=== PATIENT | female | born 1985 | race Caucasian/White ===

== ENCOUNTER 2016-10-08 12:34 | Inpatient (IN) | payer OTHER ==
[2016-10-08 13:18] VITALS: BMI 32.4
--- NOTE | 2016-10-08 14:32 | HP ---
CIWA Score - CIWA Score Nausea/Vomitin-Int. Nausea w/Dry Heave (AND DIARRHEA) Muscle Tremors: 4-Moderate,w/Arms Extend Anxiety: 4-Mod. Anxious/Guarded Agitation: 2 Paroxysmal Sweats: 1-Minimal Palms Moist Orientation: 0-Oriented Tacttile Disturbances: 3-Moderate Itch/Numb/Burn Auditory Disturbances: 0-None Visual Disturbances: 0-None Headache: 3-Moderate CIWA-Ar Total Score: 21 Admission ROS S - HPI Chief Complaint: DETOX TX FOR ALCOHOL DEPENDENCE Allergies/Adverse Reactions: Allergies Allergy/AdvReac Type Severity Reaction Status Date / Time No Known Allergies Allergy Verified 10/08/16 13:28 History of Present Illness: 30 Y/O FEMALE WITH A HX OF ALCOHOL DEPENDENCE SEEKING DETOX TX. FIRST TIME HERE. Exam Limitations: No Limitations - Ebola screening Have you traveled outside of the country in the last 21 days: No Have you had contact with anyone from an Ebola affected area: No Have you been sick,other than usual withdrawal symptoms: No Do you have a fever: No - Review of Systems Constitutional: Chills, Loss of Appetite, Night Sweats, Changes in sleep EENT: reports: Blurred Vision (WEARS GLASSES), Tearing, Nose Congestion, Dental Problems (CAVITIES IN THE PAST) Respiratory: reports: No Symptoms reported Cardiac: reports: Lightheadedness GI: reports: Diarrhea, Nausea, Poor Appetite, Poor Fluid Intake, Vomiting, Abdominal cramping : reports: Frequency Musculoskeletal: reports: Back Pain, Muscle Pain Integumentary: reports: No Symptoms Reported Neuro: reports: Headache, Tremors, Unsteady Gait, Dizziness Endocrine: reports: No Symptoms Reported Hematology: reports: No Symptoms Reported Psychiatric: reports: Orientated x3, Anxious, Depressed Other Systems: Reviewed and Negative Patient History - Patient Medical History Hx Anemia: No Hx Asthma: No Hx Chronic Obstructive Pulmonary Disease (COPD): No Hx Cardiac Disorders: No Hx Hypertension: No Hx Hypercholesterolemia: No HX Cerebrovascular Accident: No Hx Seizures: No Hx Diabetes: No Hx Gastrointestinal Disorders: Yes (Hx of acid reflux-PEPCID IN THE PAST) Hx Genitourinary Disorders: No Hx Sexually Transmitted Disorders: No (DENIES) Hx Renal Disease (ESRD): No (DENIES) Hx Thyroid Disease: No Hx Human Immunodeficiency Virus (HIV): No (NEGATIVE HX) Hx Hepatitis C: No Hx Depression: Yes (ON MED) Hx Suicide Attempt: Yes (tries to overdose at age 14 yrs;DENIES CURRENT IDEATIONS) Hx Bipolar Disorder: Yes Hx Schizophrenia: No - Patient Surgical History Past Surgical History: Yes Hx Section: No Hx Hysterectomy: No Other Surgical History: L toe ingrown toenail removed last week. Anesthesia Reaction: No - PPD History Previous Implant?: Yes Documented Results: Negative w/o proof Implanted On Prior [facility] Admission?: No PPD to be Administered?: Yes - Reproductive History Patient is a Female of Child Bearing Age (11 -55 yrs old): Yes Last Menstrual Period: 10/04/16 Patient : No - Smoking Cessation Smoking history: Former smoker Have you smoked in the past 12 months: No If you are a former smoker, when did you quit?: 2010 Hx Chewing Tobacco Use: No Initiated information on smoking cessation: No - Substance & Tx. History Hx Alcohol Use: Yes (BEER/LIQUOR) Hx Substance Use: No (DENIES) Substance Use Type: Alcohol Hx Substance Use Treatment: Yes (INPATIENT DETOX "IN [place]") - Substances Abused Alcohol Route: Oral Frequency: Daily Amount used: 8-10 SHOTS/ 6PK BEER Age of first use: 11 Date of Last Use: 10/08/16 Family Disease History - Family Disease History Family History: Denies Admission Physical Exam S - Vital Signs Vital Signs: Vital Signs - 24 hr 10/08/16 13:16 Temperature 98 F Pulse Rate 94 H Respiratory 20 Rate Blood Pressure 117/73 - Physical General Appearance: Yes: Moderate Distress, Irritable, Anxious HEENTM: Yes: EOMI, Normocephalic, MANDY, Pharynx Normal Respiratory: Yes: Chest Non-Tender, Lungs Clear, Normal Breath Sounds, No Respiratory Distress Neck: Yes: No masses,lesions,Nodules, Supple, Trachea in good position Breast: Yes: Breast Exam Deferred Cardiology: Yes: Regular Rhythm, Regular Rate, S1, S2 Abdominal: Yes: Normal Bowel Sounds, Non Tender, Soft, Protuberent Genitourinary: Yes: Other (N/C) Back: Yes: Within Normal Limits Musculoskeletal: Yes: full range of Motion, Gait Steady Extremities: Yes: Normal Range of Motion, Non-Tender, Tremors Neurological: Yes: iso coordinator II-XII NML intact, Fully Oriented, Alert, Motor Strength 5/5 Integumentary: Yes: Dry, Warm, Other (SMALL BRUISE ON LEFT ANKLE AND GREAT TOE.) Lymphatic: Yes: Within Normal Limits - Diagnostic (1) Alcohol dependence with uncomplicated withdrawal Current Visit: Yes Status: Acute (2) Ingrowing left great toenail Current Visit: Yes Status: Acute Comment: SX REMOVAL ONE WEEK AGO. SMALL BRUISE ON TOE. NO SWELLING. (3) GERD (gastroesophageal reflux disease) Current Visit: Yes Status: Chronic Qualifiers: Esophagitis presence: without esophagitis Qualified Code(s): K21.9 - Gastro-esophageal reflux disease without esophagitis Cleared for Admission [facility] - Detox or Rehab [facility] Level of Care: Medically Managed Detox Regimen/Protocol: Librium [facility] Breath Alcohol Content Breath Alcohol Content: 0 Urine Pregancy Test - Result Urine Test Results: Negative- NO Line Present Urine Drug Screen - Results Drug Screen Negative: Yes
[2016-10-08] MEDS ORDERED: MAGNESIUM CITRATE 300 ML BOTTLE PO PRN (14:47)
[2016-10-08] MEDS ORDERED: ACETAMINOPHEN 325 MG TABLET (FP) PO PRN (14:47)
[2016-10-08] MEDS ORDERED: P-EPHED 60MG/TRIPROLIDI 2.5MG TABLET PO PRN (14:47)
[2016-10-08] MEDS ORDERED: MAGNESIUM HYDROX 2400MG/30ML ORAL SUSPENSION 30 ML CUP PO PRN (14:47)
[2016-10-08] MEDS ORDERED: MENTHOL/PHENOL 1 EACH UD MM PRN (14:47)
[2016-10-08] MEDS ORDERED: chlordiazePOXIDE HCL 25 MG CAPSULE PO PRN (14:47)
[2016-10-08] MEDS ORDERED: guaiFENesin/D-METHORPHAN HB 10 ML UNIT-DOSE CUPS PO PRN (14:47)
[2016-10-08] MEDS ORDERED: chlordiazePOXIDE HCL 25 MG CAPSULE PO ONE (15:07)
[2016-10-08] MEDS: MAG HYDROX/AL HYDROX/SIMETH 30 ML UNIT-DOSE CUP PO PRN ×2 (17:21→22:25)
[2016-10-08] MEDS: chlordiazePOXIDE HCL 25 MG CAPSULE PO SCH ×2 (17:46→22:25)
[2016-10-08] MEDS ORDERED: TRIMETHOBENZAMIDE HCL 200MG/2ML INJ IM ONE (19:47)
[2016-10-08] MEDS: THIAMINE HCL 100 MG TABLET (FP) PO SCH (22:24)
[2016-10-08] MEDS: IBUPROFEN 400 MG TABLET (FP) PO PRN (22:25)
[2016-10-08] MEDS: diphenhydrAMINE HCL 50 MG CAPSULE PO PRN (22:26)
[2016-10-08 23:26] LABS: URINE APPEARANCE SLCLOUDY; URINE BILIRUBIN NEGATIVE (NEGATIVE); URINE BLOOD 2+ (NEGATIVE); URINE COLOR YELLOW; URINE GLUCOSE (UA) NEGATIVE (NEGATIVE); URINE KETONE NEGATIVE (NEGATIVE); URINE LEUK ESTERASE NEGATIVE (NEGATIVE); URINE NITRITE NEGATIVE (NEGATIVE); URINE PROTEIN NEGATIVE (NEGATIVE); URINE UROBILINOGEN NEGATIVE mg/dL (0.2-1.0)
[2016-10-09 00:56] LABS: CALCIUM OXALATE CRYSTALS MODERATE /hpf (NONE SEEN); URINE BACTERIA MODERATE /hpf (NONE SEEN); URINE MUCUS RARE; URINE RBC 2 /hpf (0-3); URINE WBC 1 /hpf (3-5)
[2016-10-09] MEDS: chlordiazePOXIDE HCL 25 MG CAPSULE PO SCH ×4 (05:26→22:18)
[2016-10-09] MEDS: LOPERAMIDE HCL 2 MG CAPSULE PO PRN (09:09)
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
[2016-10-09] MEDS ORDERED: LURASIDONE HCL 40 MG TABLET PO SCH (10:00)
[2016-10-09] MEDS ORDERED: LURASIDONE HCL 20 MG TABLET PO SCH (10:00)
[2016-10-09 10:08] LABS: MCH 27.5 pg (25.7-33.7); MCHC 32.7 g/dl (32.0-36.0); MEAN PLT VOLUME 8.6 fl (7.5-11.1); PLATELET COUNT 318 K/MM3 (134-434); RDW 14.1 % (11.6-15.6); WHITE BLOOD COUNT 8.4 K/mm3 (4.0-10.0)
[2016-10-09 10:19] LABS: ALBUMIN 4.3 g/dl (3.4-5.0); ALK PHOS 131 U/L (45-117); ANION GAP 11 (8-16); BILIRUBIN,TOTAL 0.6 mg/dL (0.2-1.0); CALCIUM 9.6 mg/dL (8.5-10.1); CO2 27 mmol/L (21-32); CREATININE 0.7 mg/dL (0.55-1.02); GLUCOSE,RANDOM 87 mg/dL (74-106); SGOT/AST 23 U/L (15-37); SGPT/ALT 30 U/L (12-78); TOT PROT 7.5 g/dl (6.4-8.2)
[2016-10-09] MEDS: PRENATAL VITAMINS W/ FOLIC ACID TABLET (FP) PO SCH (10:52)
[2016-10-09] MEDS: SERTRALINE HCL 50 MG TABLET (FP) PO SCH (10:52)
--- NOTE | 2016-10-09 11:06 | PN ---
S CIWA - CIWA Score Nausea/Vomitin-No Nausea/No Vomiting Muscle Tremors: 4-Moderate,w/Arms Extend Anxiety: 3 Agitation: 4-Moderately Restless Paroxysmal Sweats: 3 Orientation: 0-Oriented Tacttile Disturbances: 0-None Auditory Disturbances: 0-None Visual Disturbances: 0-None Headache: 1-Very Mild CIWA-Ar Total Score: 15 BHS Progress Note (SOAP) Subjective: diarrhea sweats shakes interrupted sleep agitation Objective: 10/09/16 11:06 Vital Signs Temperature 97.0 F L 10/09/16 10:53 Pulse Rate 85 10/09/16 10:53 Respiratory Rate 16 10/09/16 10:53 Blood Pressure 121/72 10/09/16 10:53 O2 Sat by Pulse Oximetry (%) Laboratory Tests 10/08/16 10/09/16 10/09/16 20:46 06:00 06:00 WBC 8.4 RBC 4.90 Hgb 13.5 Hct 41.2 MCV 84.0 MCH 27.5 MCHC 32.7 RDW 14.1 Plt Count 318 MPV 8.6 Sodium 139 Potassium 4.6 Chloride 101 Carbon Dioxide 27 Anion Gap 11 BUN 6 L Creatinine 0.7 Creat Clearance w eGFR > 60 Random Glucose 87 Calcium 9.6 Total Bilirubin 0.6 AST 23 ALT 30 Alkaline Phosphatase 131 H Total Protein 7.5 Albumin 4.3 Urine Color Yellow Urine Appearance Slcloudy Urine pH 6.0 Urine Protein Negative Urine Glucose (UA) Negative Urine Ketones Negative Urine Blood 2+ H Urine Nitrite Negative Urine Bilirubin Negative Urine Urobilinogen Negative Ur Leukocyte Esterase Negative Urine RBC 2 Urine WBC 1 Ur Epithelial Cells Moderate Calcium Oxalate Crystal Moderate Urine Bacteria Moderate Urine Mucus Rare awake/alert ambulating no acute distress Assessment: 10/09/16 11:06 withdrawal sx Plan: continue detox increase fluids immodium pnr
[2016-10-09] MEDS: ONDANSETRON 8 MG TABLET (FP) PO PRN (11:40)
--- NOTE | 2016-10-09 12:47 | EKG ---
Test Reason : Blood Pressure : / mmHG Vent. Rate : 078 BPM Atrial Rate : 078 BPM P-R Int : 142 ms QRS Dur : 090 ms QT Int : 390 ms P-R-T Axes : 073 042 053 degrees QTc Int : 444 ms NORMAL SINUS RHYTHM WITH SINUS ARRHYTHMIA POSSIBLE LEFT ATRIAL ENLARGEMENT BORDERLINE ECG NO PREVIOUS ECGS AVAILABLE Confirmed by NEHEMIAH PRATER MD ([id number]) on 10/09/2016 12:47:43 PM Referred By: Confirmed By:NEHEMIAH PRATER MD
[2016-10-09] MEDS: LURASIDONE HCL 20 MG TABLET PO SCH (22:18)
[2016-10-09] MEDS: LURASIDONE HCL 40 MG TABLET PO SCH (22:18)
[2016-10-09] MEDS: THIAMINE HCL 100 MG TABLET (FP) PO SCH (22:18)
[2016-10-09] MEDS: diphenhydrAMINE HCL 50 MG CAPSULE PO PRN (22:18)
[2016-10-10] MEDS: chlordiazePOXIDE HCL 25 MG CAPSULE PO SCH ×2 (05:23→12:14)
[2016-10-10] MEDS: PRENATAL VITAMINS W/ FOLIC ACID TABLET (FP) PO SCH (10:41)
[2016-10-10] MEDS: SERTRALINE HCL 50 MG TABLET (FP) PO SCH (10:41)
--- NOTE | 2016-10-10 11:57 | PN ---
[facility] CIWA - CIWA Score Nausea/Vomitin-No Nausea/No Vomiting Muscle Tremors: 4-Moderate,w/Arms Extend Anxiety: 3 Agitation: 3 Paroxysmal Sweats: 3 Orientation: 0-Oriented Tacttile Disturbances: 0-None Auditory Disturbances: 0-None Visual Disturbances: 0-None Headache: 0-None Present CIWA-Ar Total Score: 13 BHS Progress Note (SOAP) Subjective: sweats tired dizzy Objective: 10/10/16 11:54 Vital Signs Temperature 97.7 F 10/10/16 09:38 Pulse Rate 93 H 10/10/16 09:38 Respiratory Rate 18 10/10/16 09:38 Blood Pressure 100/52 10/10/16 09:38 O2 Sat by Pulse Oximetry (%) Laboratory Tests 10/08/16 10/09/16 10/09/16 20:46 06:00 06:00 WBC 8.4 RBC 4.90 Hgb 13.5 Hct 41.2 MCV 84.0 MCH 27.5 MCHC 32.7 RDW 14.1 Plt Count 318 MPV 8.6 Sodium 139 Potassium 4.6 Chloride 101 Carbon Dioxide 27 Anion Gap 11 BUN 6 L Creatinine 0.7 Creat Clearance w eGFR > 60 Random Glucose 87 Calcium 9.6 Total Bilirubin 0.6 AST 23 ALT 30 Alkaline Phosphatase 131 H Total Protein 7.5 Albumin 4.3 Urine Color Yellow Urine Appearance Slcloudy Urine pH 6.0 Ur Specific [place] 1.015 Urine Protein Negative Urine Glucose (UA) Negative Urine Ketones Negative Urine Blood 2+ H Urine Nitrite Negative Urine Bilirubin Negative Urine Urobilinogen Negative Ur Leukocyte Esterase Negative Urine RBC 2 Urine WBC 1 Ur Epithelial Cells Moderate Calcium Oxalate Crystal Moderate Urine Bacteria Moderate Urine Mucus Rare RPR Titer 10/09/16 06:00 WBC RBC Hgb Hct MCV MCH MCHC RDW Plt Count MPV Sodium Potassium Chloride Carbon Dioxide Anion Gap BUN Creatinine Creat Clearance w eGFR Random Glucose Calcium Total Bilirubin AST ALT Alkaline Phosphatase Total Protein Albumin Urine Color Urine Appearance Urine pH Ur Specific [place] Urine Protein Urine Glucose (UA) Urine Ketones Urine Blood Urine Nitrite Urine Bilirubin Urine Urobilinogen Ur Leukocyte Esterase Urine RBC Urine WBC Ur Epithelial Cells Calcium Oxalate Crystal Urine Bacteria Urine Mucus RPR Titer Nonreactive awake/alert ambulating no acute distress Assessment: 10/10/16 11:55 withdrawal sx Plan: continue detox increase fluids hold 10am librium
[2016-10-10] MEDS: chlordiazePOXIDE 5 MG CAPSULE PO SCH ×2 (17:31→22:28)
[2016-10-10] MEDS: THIAMINE HCL 100 MG TABLET (FP) PO SCH (22:28)
[2016-10-10] MEDS: diphenhydrAMINE HCL 50 MG CAPSULE PO PRN (22:28)
[2016-10-10] MEDS: LURASIDONE HCL 40 MG TABLET PO SCH (22:29)
[2016-10-10] MEDS: LURASIDONE HCL 20 MG TABLET PO SCH (22:29)
[2016-10-11] MEDS: chlordiazePOXIDE 5 MG CAPSULE PO SCH ×2 (06:01→12:48)
[2016-10-11] MEDS: SERTRALINE HCL 50 MG TABLET (FP) PO SCH (10:54)
[2016-10-11] MEDS: PRENATAL VITAMINS W/ FOLIC ACID TABLET (FP) PO SCH (10:54)
--- NOTE | 2016-10-11 12:44 | PN ---
BHS Progress Note (SOAP) Subjective: irritable tired Objective: 10/11/16 12:42 Vital Signs Temperature 96.1 F L 10/11/16 10:00 Pulse Rate 91 H 10/11/16 10:00 Respiratory Rate 18 10/11/16 10:00 Blood Pressure 113/62 10/11/16 10:00 O2 Sat by Pulse Oximetry (%) awake/alert ambulating no acute distress Assessment: 10/11/16 12:42 withdrawal sx Plan: continue detox increase fluids d/c in am
[2016-10-11] MEDS: chlordiazePOXIDE HCL 10 MG CAPSULE PO SCH ×2 (17:26→22:40)
[2016-10-11] MEDS: hydrOXYzine PAMOATE 50 MG CAPSULE (FP) PO PRN (21:44)
[2016-10-11] MEDS: THIAMINE HCL 100 MG TABLET (FP) PO SCH (22:40)
[2016-10-11] MEDS: LURASIDONE HCL 40 MG TABLET PO SCH (22:40)
[2016-10-11] MEDS: LURASIDONE HCL 20 MG TABLET PO SCH (22:40)
[2016-10-11] MEDS: ONDANSETRON 8 MG TABLET (FP) PO PRN (22:41)
[2016-10-11] MEDS: diphenhydrAMINE HCL 50 MG CAPSULE PO PRN (22:41)
--- NOTE | 2016-10-12 09:45 | DS ---
[facility] Detox Discharge Summary Admission Date: 10/08/16 Discharge Date: 10/12/16 - History Present History: Alcohol Dependence Pertinent Past History: GERD BIPOLAR DISORDER INGROWN TOENAIL LEFT GREAT TOE - Physical Exam Results Vital Signs: Vital Signs Temperature 97 F L 10/12/16 06:26 Pulse Rate 76 10/12/16 06:26 Respiratory Rate 18 10/12/16 06:26 Blood Pressure 96/61 10/12/16 06:26 O2 Sat by Pulse Oximetry (%) Pertinent Admission Physical Exam Findings: WITHDRAWAL SYMPTOM - Treatment Hospital Course: Detox Protocol Followed, Detoxed Safely, Responded well, Discharged Condition Good, Rehab Referral Accepted Patient has Accepted a Rehab Referral to: [facility] - Medication Discharge Medications: Ambulatory Orders Famotidine [Pepcid -] 20 mg PO BID 10/08/16 L. Acidophilus/Pectin, [place] [Acidophilus Probiotic Capsule] 1 each PO DAILY Lurasidone HCl [Latuda -] 60 mg PO DAILY 10/08/16 Multivitamin,Ther and Minerals [Vitamin and Minerals] 1 each PO DAILY 10/08/16 Sertraline HCl [Zoloft -] 100 mg PO DAILY 10/08/16 Lurasidone HCl [Latuda -] 20 mg PO HS #30 tablet 10/09/16 Lurasidone HCl [Latuda -] 40 mg PO HS #30 tablet 10/09/16 Sertraline HCl [Zoloft -] 100 mg PO DAILY #30 tablet 10/09/16 Sertraline HCl [Zoloft] 100 mg PO DAILY #30 tablet 10/09/16 - Diagnosis (1) Alcohol dependence with uncomplicated withdrawal Current Visit: Yes Status: Acute (2) Bipolar disorder Current Visit: Yes Status: Acute (3) Ingrowing left great toenail Current Visit: Yes Status: Acute (4) GERD (gastroesophageal reflux disease) Current Visit: Yes Status: Chronic Qualifiers: Esophagitis presence: without esophagitis Qualified Code(s): K21.9 - Gastro-esophageal reflux disease without esophagitis - AMA Did Patient Leave Against Medical Advice: No
[2016-10-12] MEDS: SERTRALINE HCL 50 MG TABLET (FP) PO SCH (11:00)
[2016-10-12] MEDS: PRENATAL VITAMINS W/ FOLIC ACID TABLET (FP) PO SCH (11:00)
[2016-10-12] MEDS: chlordiazePOXIDE HCL 10 MG CAPSULE PO SCH (11:03)
[2016-10-12] MEDS ORDERED: PT OWN MED DRAWER 7, Y5N ONE ×2 (19:55→21:48)
[2016-10-12] MEDS: THIAMINE HCL 100 MG TABLET (FP) PO SCH (21:49)
[2016-10-12] MEDS: diphenhydrAMINE HCL 50 MG CAPSULE PO PRN (22:55)
[2016-10-12] MEDS: LURASIDONE HCL 20 MG TABLET PO SCH (22:56)
[2016-10-12] MEDS: LURASIDONE HCL 40 MG TABLET PO SCH (23:08)
[2016-10-13] MEDS ORDERED: PT OWN MED DRAWER 7, Y5N ONE (01:13)
[2016-10-13] MEDS: SERTRALINE HCL 50 MG TABLET (FP) PO SCH (09:31)
[2016-10-13] MEDS: PRENATAL VITAMINS W/ FOLIC ACID TABLET (FP) PO SCH (09:31)
[2016-10-13] MEDS: LOPERAMIDE HCL 2 MG CAPSULE PO PRN (20:00)
[2016-10-13] MEDS: LURASIDONE HCL 40 MG TABLET PO SCH (21:42)
[2016-10-13] MEDS: LURASIDONE HCL 20 MG TABLET PO SCH (21:42)
[2016-10-13] MEDS: THIAMINE HCL 100 MG TABLET (FP) PO SCH (21:42)
[2016-10-14] MEDS: SERTRALINE HCL 50 MG TABLET (FP) PO SCH (09:59)
[2016-10-14] MEDS: PRENATAL VITAMINS W/ FOLIC ACID TABLET (FP) PO SCH (09:59)
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
[2016-10-14] MEDS: LACTOBACILLUS ACIDOPHILUS 1 EACH TAB (FP) PO SCH (15:35)
[2016-10-14] MEDS: PANTOPRAZOLE 40 MG TABLET (FP) PO SCH (15:36)
[2016-10-14] MEDS ORDERED: PT OWN MED DRAWER 7, Y5N ONE ×3 (15:38→22:08)
[2016-10-14] MEDS: BACITRACIN 0.9 GM PACKET TP SCH (21:34)
[2016-10-14] MEDS: THIAMINE HCL 100 MG TABLET (FP) PO SCH (21:35)
[2016-10-14] MEDS: diphenhydrAMINE HCL 50 MG CAPSULE PO PRN (22:35)
[2016-10-14] MEDS: LURASIDONE HCL 20 MG TABLET PO SCH (23:45)
[2016-10-15] MEDS ORDERED: PT OWN MED DRAWER 7, Y5N ONE ×3 (08:30→14:32)
[2016-10-15] MEDS: LACTOBACILLUS ACIDOPHILUS 1 EACH TAB (FP) PO SCH (10:02)
[2016-10-15] MEDS: PRENATAL VITAMINS W/ FOLIC ACID TABLET (FP) PO SCH (10:03)
[2016-10-15] MEDS: SERTRALINE HCL 50 MG TABLET (FP) PO SCH (10:03)
[2016-10-15] MEDS: PANTOPRAZOLE 40 MG TABLET (FP) PO SCH (10:03)
[2016-10-15] MEDS: BACITRACIN 0.9 GM PACKET TP SCH ×2 (10:04→22:20)
[2016-10-15] MEDS: hydrOXYzine PAMOATE 50 MG CAPSULE (FP) PO PRN (16:09)
[2016-10-15] MEDS: diphenhydrAMINE HCL 50 MG CAPSULE PO PRN (22:11)
[2016-10-15] MEDS: THIAMINE HCL 100 MG TABLET (FP) PO SCH (22:11)
[2016-10-15] MEDS: LURASIDONE HCL 20 MG TABLET PO SCH (22:25)
[2016-10-16] MEDS: SERTRALINE HCL 50 MG TABLET (FP) PO SCH (10:37)
[2016-10-16] MEDS: PRENATAL VITAMINS W/ FOLIC ACID TABLET (FP) PO SCH (10:37)
[2016-10-16] MEDS: PANTOPRAZOLE 40 MG TABLET (FP) PO SCH (10:38)
[2016-10-16] MEDS: LACTOBACILLUS ACIDOPHILUS 1 EACH TAB (FP) PO SCH (10:38)
[2016-10-16] MEDS: BACITRACIN 0.9 GM PACKET TP SCH ×2 (10:38→21:53)
[2016-10-16] MEDS ORDERED: PT OWN MED DRAWER 7, Y5N ONE ×2 (21:51→21:53)
[2016-10-16] MEDS: THIAMINE HCL 100 MG TABLET (FP) PO SCH (21:52)
[2016-10-16] MEDS: diphenhydrAMINE HCL 50 MG CAPSULE PO PRN (21:53)
[2016-10-16] MEDS: LURASIDONE HCL 20 MG TABLET PO SCH (21:53)
[2016-10-17] MEDS: LACTOBACILLUS ACIDOPHILUS 1 EACH TAB (FP) PO SCH (10:38)
[2016-10-17] MEDS: PRENATAL VITAMINS W/ FOLIC ACID TABLET (FP) PO SCH (10:38)
[2016-10-17] MEDS: SERTRALINE HCL 50 MG TABLET (FP) PO SCH (10:38)
[2016-10-17] MEDS: BACITRACIN 0.9 GM PACKET TP SCH ×2 (10:39→21:47)
[2016-10-17] MEDS: PANTOPRAZOLE 40 MG TABLET (FP) PO SCH (10:39)
[2016-10-17] MEDS ORDERED: PT OWN MED DRAWER 7, Y5N ONE ×3 (10:44→21:48)
[2016-10-17] MEDS: THIAMINE HCL 100 MG TABLET (FP) PO SCH (21:47)
[2016-10-17] MEDS: diphenhydrAMINE HCL 50 MG CAPSULE PO PRN (21:48)
[2016-10-17] MEDS: LURASIDONE HCL 20 MG TABLET PO SCH (21:49)
[2016-10-18] MEDS: IBUPROFEN 400 MG TABLET (FP) PO PRN (08:19)
--- NOTE | 2016-10-18 09:00 | PN ---
Psychiatric Progress Note Vital Signs: Vital Signs Period Temp Pulse Resp BP Sys/العراقي Pulse Ox Last 24 Hr 97.7 F 80 18-18 112/74 Date of Session: 10/18/16 Chief Complaint:: Shaun still depressed and Vistaril 50 mg makes me drowsy. HPI: Patient addressed nAlcohol,Opioid dependence comorbid with Bipolar disorder. ROS: Significant for GERD. Current Medications: Active Medications Generic Name Dose Route Start Last Admin Trade Name Freq PRN Reason Stop Dose Admin Acetaminophen 650 mg 10/08/16 14:47 Tylenol - PO Q4H PRN FEVER OR PAIN Al Hydroxide/Mg Hydroxide 30 ml 10/08/16 14:47 10/08/16 22:25 Mylanta Oral Suspension - PO 30 ml Q6H PRN Administration DYSPEPSIA Bacitracin 0.9 gm 10/14/16 22:00 10/17/16 21:47 Bacitracin - TP 0.9 gm BID ALEXIA Administration Diphenhydramine HCl 50 mg 10/08/16 14:47 10/17/16 21:48 Benadryl - PO 50 mg HSMR1 PRN Administration INSOMNIA Eucalyptus/Menthol/Phenol/Sorbitol 1 each 10/08/16 14:47 Cepastat Lozenge - MM Q4H PRN SORE THROAT Guaifenesin 10 ml 10/08/16 14:47 Robitussin Dm - PO Q6H PRN COUGH Hydroxyzine Pamoate 25 mg 10/18/16 08:55 Vistaril - PO Q4H PRN ANXIETY Ibuprofen 400 mg 10/08/16 14:47 10/18/16 08:19 Motrin - PO 400 mg Q6H PRN Administration SEVERE PAIN Lactobacillus Acidophilus 1 tab 10/14/16 15:15 10/17/16 10:38 Bacid - PO 1 tab DAILY ALEXIA Administration Loperamide HCl 4 mg 10/08/16 14:47 10/13/16 20:00 Imodium - PO 4 mg Q6H PRN Administration DIARRHEA Lurasidone HCl 60 mg 10/14/16 22:00 10/17/16 21:49 Latuda - PO 60 mg HS ALEXIA Administration Magnesium Citrate 300 ml 10/08/16 14:47 Citroma - PO Q48H PRN CONSTIPATION Magnesium Hydroxide 30 ml 10/08/16 14:47 Milk Of Magnesia - PO DAILY PRN CONSTIPATION Ondansetron HCl 8 mg 10/08/16 19:14 10/11/16 22:41 Zofran - PO 8 mg Q8H PRN Administration NAUSEA AND/OR VOMITING Pantoprazole Sodium 40 mg 10/14/16 15:15 10/17/16 10:39 Protonix - PO 40 mg DAILY ALEXIA Administration Multivit/Folic Acid/Iron 1 tab 10/09/16 10:00 10/17/16 10:38 Vitamins (Sjr) - PO 1 tab DAILY ALEXIA Administration Pseudoephedrine/Triprolidine 1 combo 10/08/16 14:47 Actifed - PO TID PRN NASAL CONGESTION Sertraline HCl 150 mg 10/18/16 10:00 Zoloft - PO DAILY ALEXIA Thiamine HCl 100 mg 10/08/16 22:00 10/17/16 21:47 Vitamin B1 - PO 100 mg HS ALEXIA Administration Current Side Effect: No Lab tests ordered: No Lab tests reviewed: Yes Provider note:: Patient was seen today in my office to address continuos depressed mood,anxiety,drowsiness from Vistaril.Properties of Zoloft has been discussed with patient including side effects,benefits and dose adjustment.Zoloft 100 mg po daily will be adjusted to 150 mg po daily,Vistaril 50 mg po q 4 hrs will be adjusted to 25 mg po q 4 hrs prn for anxiety.Continue Latuda 60 mg po daily. Supportive therapy provided as well as psychoeducation. Total face to face time:: 25 Mental Status Exam - Mental Status Exam Alert and Oriented to: Time, Place, Person Cognitive Function: Grossly Intact Patient Appearance: Unkempt Mood: Nervous, Anxious, Expansive, Irritable Affect: Mood Congruent, Labile Patient Behavior: Cooperative Speech Pattern: Clear Voice Loudness: Normal Thought Process: Goal Oriented Thought Disorder: Not Present Hallucinations: Denies Suicidal Ideation: Denies Homicidal Ideation: Denies Insight/Judgement: Fair Sleep: Fair Appetite: Fair Muscle strength/Tone: Normal Gait/Station: Normal Psychiatric Treatment Plan - Problem List (1) Bipolar disorder Current Visit: Yes (2) Ingrowing left great toenail Current Visit: Yes Comment: SX REMOVAL ONE WEEK AGO. SMALL BRUISE ON TOE. NO SWELLING. (3) GERD (gastroesophageal reflux disease) Current Visit: Yes Qualifiers: Esophagitis presence: without esophagitis Qualified Code(s): K21.9 - Gastro-esophageal reflux disease without esophagitis (4) Alcohol dependence Current Visit: Yes (5) Opioid dependence Current Visit: Yes
[2016-10-18] MEDS: SERTRALINE HCL 50 MG TABLET (FP) PO SCH (10:40)
[2016-10-18] MEDS: LACTOBACILLUS ACIDOPHILUS 1 EACH TAB (FP) PO SCH (10:40)
[2016-10-18] MEDS: PRENATAL VITAMINS W/ FOLIC ACID TABLET (FP) PO SCH (10:41)
[2016-10-18] MEDS: PANTOPRAZOLE 40 MG TABLET (FP) PO SCH (10:41)
[2016-10-18] MEDS: BACITRACIN 0.9 GM PACKET TP SCH ×2 (10:41→21:58)
[2016-10-18] MEDS ORDERED: ONDANSETRON *ODT* 4 MG TABLET SL PRN (12:25)
[2016-10-18] MEDS: hydrOXYzine PAMOATE 25 MG CAPSULE (FP) PO PRN (16:51)
[2016-10-18] MEDS: diphenhydrAMINE HCL 50 MG CAPSULE PO PRN (21:58)
[2016-10-18] MEDS: THIAMINE HCL 100 MG TABLET (FP) PO SCH (21:58)
[2016-10-18] MEDS: LURASIDONE HCL 20 MG TABLET PO SCH (22:00)
[2016-10-19] MEDS: SERTRALINE HCL 50 MG TABLET (FP) PO SCH (09:35)
[2016-10-19] MEDS: BACITRACIN 0.9 GM PACKET TP SCH ×2 (09:35→21:43)
[2016-10-19] MEDS: PRENATAL VITAMINS W/ FOLIC ACID TABLET (FP) PO SCH (09:36)
[2016-10-19] MEDS: PANTOPRAZOLE 40 MG TABLET (FP) PO SCH (09:36)
[2016-10-19] MEDS: LACTOBACILLUS ACIDOPHILUS 1 EACH TAB (FP) PO SCH (09:36)
[2016-10-19] MEDS ORDERED: PT OWN MED DRAWER 7, Y5N ONE ×3 (10:21→21:46)
[2016-10-19] MEDS: LURASIDONE HCL 20 MG TABLET PO SCH (21:43)
[2016-10-19] MEDS: THIAMINE HCL 100 MG TABLET (FP) PO SCH (21:43)
[2016-10-19] MEDS: diphenhydrAMINE HCL 50 MG CAPSULE PO PRN (21:44)
[2016-10-20] MEDS: PANTOPRAZOLE 40 MG TABLET (FP) PO SCH (09:51)
[2016-10-20] MEDS: PRENATAL VITAMINS W/ FOLIC ACID TABLET (FP) PO SCH (09:51)
[2016-10-20] MEDS: SERTRALINE HCL 50 MG TABLET (FP) PO SCH (09:51)
[2016-10-20] MEDS: BACITRACIN 0.9 GM PACKET TP SCH ×2 (09:51→21:56)
[2016-10-20] MEDS: LACTOBACILLUS ACIDOPHILUS 1 EACH TAB (FP) PO SCH (09:51)
[2016-10-20] MEDS ORDERED: PT OWN MED DRAWER 7, Y5N ONE ×3 (13:12→20:01)
[2016-10-20] MEDS: hydrOXYzine PAMOATE 25 MG CAPSULE (FP) PO PRN (19:21)
[2016-10-20] MEDS: THIAMINE HCL 100 MG TABLET (FP) PO SCH (21:50)
[2016-10-20] MEDS: LURASIDONE HCL 20 MG TABLET PO SCH (21:51)
[2016-10-20] MEDS: diphenhydrAMINE HCL 50 MG CAPSULE PO PRN (21:51)
[2016-10-21] MEDS ORDERED: PT OWN MED DRAWER 7, Y5N ONE ×2 (09:26→19:54)
[2016-10-21] MEDS: PANTOPRAZOLE 40 MG TABLET (FP) PO SCH (10:40)
[2016-10-21] MEDS: PRENATAL VITAMINS W/ FOLIC ACID TABLET (FP) PO SCH (10:41)
[2016-10-21] MEDS: LACTOBACILLUS ACIDOPHILUS 1 EACH TAB (FP) PO SCH (10:41)
[2016-10-21] MEDS: BACITRACIN 0.9 GM PACKET TP SCH ×2 (10:41→21:55)
[2016-10-21] MEDS: SERTRALINE HCL 50 MG TABLET (FP) PO SCH (10:41)
[2016-10-21] MEDS: hydrOXYzine PAMOATE 25 MG CAPSULE (FP) PO PRN ×2 (12:53→18:53)
[2016-10-21] MEDS: THIAMINE HCL 100 MG TABLET (FP) PO SCH (21:55)
[2016-10-21] MEDS: diphenhydrAMINE HCL 50 MG CAPSULE PO PRN (21:55)
[2016-10-21] MEDS: LURASIDONE HCL 20 MG TABLET PO SCH (21:56)
[2016-10-22] MEDS: PRENATAL VITAMINS W/ FOLIC ACID TABLET (FP) PO SCH (10:29)
[2016-10-22] MEDS: PANTOPRAZOLE 40 MG TABLET (FP) PO SCH (10:29)
[2016-10-22] MEDS: BACITRACIN 0.9 GM PACKET TP SCH ×2 (10:29→21:54)
[2016-10-22] MEDS: LACTOBACILLUS ACIDOPHILUS 1 EACH TAB (FP) PO SCH (10:29)
[2016-10-22] MEDS: SERTRALINE HCL 50 MG TABLET (FP) PO SCH (10:30)
[2016-10-22] MEDS ORDERED: PT OWN MED DRAWER 7, Y5N ONE ×2 (10:35→19:56)
[2016-10-22] MEDS: hydrOXYzine PAMOATE 25 MG CAPSULE (FP) PO PRN (10:53)
[2016-10-22] MEDS: THIAMINE HCL 100 MG TABLET (FP) PO SCH (21:54)
[2016-10-22] MEDS: diphenhydrAMINE HCL 50 MG CAPSULE PO PRN (21:54)
[2016-10-22] MEDS: LURASIDONE HCL 20 MG TABLET PO SCH (21:55)
[2016-10-23] MEDS: PRENATAL VITAMINS W/ FOLIC ACID TABLET (FP) PO SCH (10:19)
[2016-10-23] MEDS: PANTOPRAZOLE 40 MG TABLET (FP) PO SCH (10:20)
[2016-10-23] MEDS: SERTRALINE HCL 50 MG TABLET (FP) PO SCH (10:20)
[2016-10-23] MEDS: LACTOBACILLUS ACIDOPHILUS 1 EACH TAB (FP) PO SCH (10:20)
[2016-10-23] MEDS: BACITRACIN 0.9 GM PACKET TP SCH ×2 (10:20→21:58)
[2016-10-23] MEDS ORDERED: PT OWN MED DRAWER 7, Y5N ONE (14:19)
[2016-10-23] MEDS: LURASIDONE HCL 20 MG TABLET PO SCH (21:40)
[2016-10-23] MEDS: THIAMINE HCL 100 MG TABLET (FP) PO SCH (21:59)
[2016-10-23] MEDS: diphenhydrAMINE HCL 50 MG CAPSULE PO PRN (21:59)
[2016-10-24] MEDS: PANTOPRAZOLE 40 MG TABLET (FP) PO SCH (10:03)
[2016-10-24] MEDS: PRENATAL VITAMINS W/ FOLIC ACID TABLET (FP) PO SCH (10:03)
[2016-10-24] MEDS: SERTRALINE HCL 50 MG TABLET (FP) PO SCH (10:03)
[2016-10-24] MEDS: LACTOBACILLUS ACIDOPHILUS 1 EACH TAB (FP) PO SCH (10:03)
[2016-10-24] MEDS: BACITRACIN 0.9 GM PACKET TP SCH ×2 (10:04→21:54)
[2016-10-24] MEDS ORDERED: PT OWN MED DRAWER 7, Y5N ONE ×2 (13:21→20:09)
[2016-10-24] MEDS: LURASIDONE HCL 20 MG TABLET PO SCH (21:54)
[2016-10-24] MEDS: diphenhydrAMINE HCL 50 MG CAPSULE PO PRN (21:54)
[2016-10-24] MEDS: THIAMINE HCL 100 MG TABLET (FP) PO SCH (21:54)
[2016-10-25] MEDS: PRENATAL VITAMINS W/ FOLIC ACID TABLET (FP) PO SCH (09:45)
[2016-10-25] MEDS: LACTOBACILLUS ACIDOPHILUS 1 EACH TAB (FP) PO SCH (09:45)
[2016-10-25] MEDS: PANTOPRAZOLE 40 MG TABLET (FP) PO SCH (09:45)
[2016-10-25] MEDS: SERTRALINE HCL 50 MG TABLET (FP) PO SCH (09:45)
[2016-10-25] MEDS: hydrOXYzine PAMOATE 25 MG CAPSULE (FP) PO PRN (09:46)
[2016-10-25] MEDS: BACITRACIN 0.9 GM PACKET TP SCH ×2 (10:23→22:09)
[2016-10-25] MEDS ORDERED: PT OWN MED DRAWER 7, Y5N ONE (19:58)
[2016-10-25] MEDS: diphenhydrAMINE HCL 50 MG CAPSULE PO PRN (22:09)
[2016-10-25] MEDS: LURASIDONE HCL 20 MG TABLET PO SCH (22:09)
[2016-10-25] MEDS: THIAMINE HCL 100 MG TABLET (FP) PO SCH (22:09)
[2016-10-26] MEDS: PANTOPRAZOLE 40 MG TABLET (FP) PO SCH (09:30)
[2016-10-26] MEDS: PRENATAL VITAMINS W/ FOLIC ACID TABLET (FP) PO SCH (09:30)
[2016-10-26] MEDS: SERTRALINE HCL 50 MG TABLET (FP) PO SCH (09:30)
[2016-10-26] MEDS: BACITRACIN 0.9 GM PACKET TP SCH ×2 (09:30→21:57)
[2016-10-26] MEDS: LACTOBACILLUS ACIDOPHILUS 1 EACH TAB (FP) PO SCH (09:32)
[2016-10-26] MEDS ORDERED: PT OWN MED DRAWER 7, Y5N ONE (09:32)
[2016-10-26] MEDS: diphenhydrAMINE HCL 50 MG CAPSULE PO PRN (21:57)
[2016-10-26] MEDS: THIAMINE HCL 100 MG TABLET (FP) PO SCH (21:57)
[2016-10-26] MEDS: LURASIDONE HCL 20 MG TABLET PO SCH (21:57)
[2016-10-27] MEDS ORDERED: PT OWN MED DRAWER 7, Y5N ONE ×2 (09:09→20:21)
[2016-10-27] MEDS: LACTOBACILLUS ACIDOPHILUS 1 EACH TAB (FP) PO SCH (09:19)
[2016-10-27] MEDS: BACITRACIN 0.9 GM PACKET TP SCH ×2 (09:19→22:14)
[2016-10-27] MEDS: PRENATAL VITAMINS W/ FOLIC ACID TABLET (FP) PO SCH (09:19)
[2016-10-27] MEDS: PANTOPRAZOLE 40 MG TABLET (FP) PO SCH (09:19)
[2016-10-27] MEDS: SERTRALINE HCL 50 MG TABLET (FP) PO SCH (09:19)
[2016-10-27] MEDS: hydrOXYzine PAMOATE 25 MG CAPSULE (FP) PO PRN (09:21)
[2016-10-27] MEDS: diphenhydrAMINE HCL 50 MG CAPSULE PO PRN (22:14)
[2016-10-27] MEDS: LURASIDONE HCL 20 MG TABLET PO SCH (22:15)
[2016-10-27] MEDS: THIAMINE HCL 100 MG TABLET (FP) PO SCH (22:15)
[2016-10-28] MEDS: BACITRACIN 0.9 GM PACKET TP SCH ×2 (10:30→21:40)
[2016-10-28] MEDS: SERTRALINE HCL 50 MG TABLET (FP) PO SCH (10:30)
[2016-10-28] MEDS: PRENATAL VITAMINS W/ FOLIC ACID TABLET (FP) PO SCH (10:30)
[2016-10-28] MEDS: PANTOPRAZOLE 40 MG TABLET (FP) PO SCH (10:30)
[2016-10-28] MEDS: LACTOBACILLUS ACIDOPHILUS 1 EACH TAB (FP) PO SCH (10:30)
[2016-10-28] MEDS: THIAMINE HCL 100 MG TABLET (FP) PO SCH (21:39)
[2016-10-28] MEDS: LURASIDONE HCL 20 MG TABLET PO SCH (21:40)
[2016-10-28] MEDS: diphenhydrAMINE HCL 50 MG CAPSULE PO PRN (21:40)
[2016-10-29] MEDS ORDERED: PT OWN MED DRAWER 7, Y5N ONE ×2 (09:46→20:14)
[2016-10-29] MEDS: LACTOBACILLUS ACIDOPHILUS 1 EACH TAB (FP) PO SCH (10:21)
[2016-10-29] MEDS: PANTOPRAZOLE 40 MG TABLET (FP) PO SCH (10:21)
[2016-10-29] MEDS: BACITRACIN 0.9 GM PACKET TP SCH ×2 (10:21→21:07)
[2016-10-29] MEDS: SERTRALINE HCL 50 MG TABLET (FP) PO SCH (10:21)
[2016-10-29] MEDS: PRENATAL VITAMINS W/ FOLIC ACID TABLET (FP) PO SCH (10:21)
[2016-10-29] MEDS: LURASIDONE HCL 20 MG TABLET PO SCH (21:07)
[2016-10-29] MEDS: THIAMINE HCL 100 MG TABLET (FP) PO SCH (21:07)
[2016-10-29] MEDS: diphenhydrAMINE HCL 50 MG CAPSULE PO PRN (21:08)
[2016-10-30] MEDS ORDERED: PT OWN MED DRAWER 7, Y5N ONE (08:52)
[2016-10-30] MEDS: PRENATAL VITAMINS W/ FOLIC ACID TABLET (FP) PO SCH (10:09)
[2016-10-30] MEDS: LACTOBACILLUS ACIDOPHILUS 1 EACH TAB (FP) PO SCH (10:09)
[2016-10-30] MEDS: BACITRACIN 0.9 GM PACKET TP SCH ×2 (10:09→21:54)
[2016-10-30] MEDS: SERTRALINE HCL 50 MG TABLET (FP) PO SCH (10:10)
[2016-10-30] MEDS: PANTOPRAZOLE 40 MG TABLET (FP) PO SCH (10:10)
[2016-10-30] MEDS: LURASIDONE HCL 20 MG TABLET PO SCH (21:54)
[2016-10-30] MEDS: diphenhydrAMINE HCL 50 MG CAPSULE PO PRN (21:54)
[2016-10-30] MEDS: THIAMINE HCL 100 MG TABLET (FP) PO SCH (21:54)
[2016-10-31] MEDS: LACTOBACILLUS ACIDOPHILUS 1 EACH TAB (FP) PO SCH (10:19)
[2016-10-31] MEDS: SERTRALINE HCL 50 MG TABLET (FP) PO SCH (10:19)
[2016-10-31] MEDS: PRENATAL VITAMINS W/ FOLIC ACID TABLET (FP) PO SCH (10:19)
[2016-10-31] MEDS: BACITRACIN 0.9 GM PACKET TP SCH ×2 (10:19→21:43)
[2016-10-31] MEDS: PANTOPRAZOLE 40 MG TABLET (FP) PO SCH (10:19)
[2016-10-31] MEDS ORDERED: COLLOIDAL OATMEAL 1 BAR EACH TP PRN (15:02)
[2016-10-31] MEDS: diphenhydrAMINE HCL 50 MG CAPSULE PO PRN (21:43)
[2016-10-31] MEDS: THIAMINE HCL 100 MG TABLET (FP) PO SCH (21:43)
[2016-10-31] MEDS: LURASIDONE HCL 20 MG TABLET PO SCH (21:45)
[2016-11-01] MEDS ORDERED: PT OWN MED DRAWER 7, Y5N ONE ×2 (08:52→23:11)
[2016-11-01] MEDS: PRENATAL VITAMINS W/ FOLIC ACID TABLET (FP) PO SCH (10:23)
[2016-11-01] MEDS: SERTRALINE HCL 50 MG TABLET (FP) PO SCH (10:23)
[2016-11-01] MEDS: PANTOPRAZOLE 40 MG TABLET (FP) PO SCH (10:23)
[2016-11-01] MEDS: BACITRACIN 0.9 GM PACKET TP SCH ×2 (10:24→21:55)
[2016-11-01] MEDS: LACTOBACILLUS ACIDOPHILUS 1 EACH TAB (FP) PO SCH (10:24)
[2016-11-01] MEDS: hydrOXYzine PAMOATE 50 MG CAPSULE (FP) PO PRN ×2 (12:14→16:33)
[2016-11-01] MEDS: LURASIDONE HCL 20 MG TABLET PO SCH (21:54)
[2016-11-01] MEDS: THIAMINE HCL 100 MG TABLET (FP) PO SCH (21:54)
[2016-11-01] MEDS: diphenhydrAMINE HCL 50 MG CAPSULE PO PRN (21:55)
[2016-11-02] MEDS: PANTOPRAZOLE 40 MG TABLET (FP) PO SCH (09:51)
[2016-11-02] MEDS: LACTOBACILLUS ACIDOPHILUS 1 EACH TAB (FP) PO SCH (09:51)
[2016-11-02] MEDS: SERTRALINE HCL 50 MG TABLET (FP) PO SCH (09:51)
[2016-11-02] MEDS: PRENATAL VITAMINS W/ FOLIC ACID TABLET (FP) PO SCH (09:51)
[2016-11-02] MEDS: HYDROCORTISONE 1% TOPICAL CREAM 30 GM TUBE TP PRN (09:52)
[2016-11-02] MEDS: BACITRACIN 0.9 GM PACKET TP SCH ×2 (09:53→21:43)
[2016-11-02] MEDS ORDERED: PT OWN MED DRAWER 7, Y5N ONE ×3 (09:56→21:49)
[2016-11-02] MEDS: THIAMINE HCL 100 MG TABLET (FP) PO SCH (21:44)
[2016-11-02] MEDS: LURASIDONE HCL 20 MG TABLET PO SCH (21:44)
[2016-11-02] MEDS: diphenhydrAMINE HCL 50 MG CAPSULE PO PRN (21:45)
[2016-11-03] MEDS: SERTRALINE HCL 50 MG TABLET (FP) PO SCH (09:56)
[2016-11-03] MEDS: LACTOBACILLUS ACIDOPHILUS 1 EACH TAB (FP) PO SCH (09:56)
[2016-11-03] MEDS: PRENATAL VITAMINS W/ FOLIC ACID TABLET (FP) PO SCH (09:56)
[2016-11-03] MEDS: PANTOPRAZOLE 40 MG TABLET (FP) PO SCH (09:56)
[2016-11-03] MEDS: BACITRACIN 0.9 GM PACKET TP SCH ×2 (09:57→21:53)
[2016-11-03] MEDS ORDERED: PT OWN MED DRAWER 7, Y5N ONE ×2 (10:05→21:36)
[2016-11-03] MEDS: diphenhydrAMINE HCL 50 MG CAPSULE PO PRN (21:34)
[2016-11-03] MEDS: LURASIDONE HCL 20 MG TABLET PO SCH (21:34)
[2016-11-03] MEDS: THIAMINE HCL 100 MG TABLET (FP) PO SCH (21:34)
[2016-11-04] MEDS ORDERED: PT OWN MED DRAWER 7, Y5N ONE (08:00)
[2016-11-04] MEDS: SERTRALINE HCL 50 MG TABLET (FP) PO SCH (10:13)
[2016-11-04] MEDS: LACTOBACILLUS ACIDOPHILUS 1 EACH TAB (FP) PO SCH (10:13)
[2016-11-04] MEDS: PANTOPRAZOLE 40 MG TABLET (FP) PO SCH (10:13)
[2016-11-04] MEDS: PRENATAL VITAMINS W/ FOLIC ACID TABLET (FP) PO SCH (10:13)
[2016-11-04] MEDS: BACITRACIN 0.9 GM PACKET TP SCH ×2 (10:13→21:47)
[2016-11-04] MEDS: THIAMINE HCL 100 MG TABLET (FP) PO SCH (21:47)
[2016-11-04] MEDS: diphenhydrAMINE HCL 50 MG CAPSULE PO PRN (21:47)
[2016-11-04] MEDS: LURASIDONE HCL 20 MG TABLET PO SCH (21:47)
[2016-11-05] MEDS: SERTRALINE HCL 50 MG TABLET (FP) PO SCH (10:54)
[2016-11-05] MEDS: PRENATAL VITAMINS W/ FOLIC ACID TABLET (FP) PO SCH (10:54)
[2016-11-05] MEDS: PANTOPRAZOLE 40 MG TABLET (FP) PO SCH (10:54)
[2016-11-05] MEDS: LACTOBACILLUS ACIDOPHILUS 1 EACH TAB (FP) PO SCH (10:55)
[2016-11-05] MEDS: BACITRACIN 0.9 GM PACKET TP SCH ×2 (10:56→22:13)
[2016-11-05] MEDS ORDERED: PT OWN MED DRAWER 7, Y5N ONE ×3 (10:58→23:30)
[2016-11-05] MEDS: hydrOXYzine PAMOATE 50 MG CAPSULE (FP) PO PRN (12:36)
[2016-11-05] MEDS: LURASIDONE HCL 20 MG TABLET PO SCH (22:14)
[2016-11-05] MEDS: THIAMINE HCL 100 MG TABLET (FP) PO SCH (22:14)
[2016-11-05] MEDS: diphenhydrAMINE HCL 50 MG CAPSULE PO PRN (22:14)
[2016-11-06] MEDS: HYDROCORTISONE 1% TOPICAL CREAM 30 GM TUBE TP PRN (10:45)
[2016-11-06] MEDS: BACITRACIN 0.9 GM PACKET TP SCH ×2 (10:45→22:07)
[2016-11-06] MEDS: PANTOPRAZOLE 40 MG TABLET (FP) PO SCH (10:46)
[2016-11-06] MEDS: LACTOBACILLUS ACIDOPHILUS 1 EACH TAB (FP) PO SCH (10:46)
[2016-11-06] MEDS: SERTRALINE HCL 50 MG TABLET (FP) PO SCH (10:46)
[2016-11-06] MEDS: PRENATAL VITAMINS W/ FOLIC ACID TABLET (FP) PO SCH (10:46)
[2016-11-06] MEDS ORDERED: PT OWN MED DRAWER 7, Y5N ONE ×2 (13:18→19:59)
[2016-11-06] MEDS: THIAMINE HCL 100 MG TABLET (FP) PO SCH (22:06)
[2016-11-06] MEDS: LURASIDONE HCL 20 MG TABLET PO SCH (22:06)
[2016-11-06] MEDS: diphenhydrAMINE HCL 50 MG CAPSULE PO PRN (22:07)
[2016-11-07 06:52] VITALS: PULSE 93
[2016-11-07] MEDS: PRENATAL VITAMINS W/ FOLIC ACID TABLET (FP) PO SCH (10:20)
[2016-11-07] MEDS: LACTOBACILLUS ACIDOPHILUS 1 EACH TAB (FP) PO SCH (10:20)
[2016-11-07] MEDS: BACITRACIN 0.9 GM PACKET TP SCH ×2 (10:20→21:52)
[2016-11-07] MEDS: PANTOPRAZOLE 40 MG TABLET (FP) PO SCH (10:20)
[2016-11-07] MEDS: SERTRALINE HCL 50 MG TABLET (FP) PO SCH (10:20)
[2016-11-07] MEDS ORDERED: PT OWN MED DRAWER 7, Y5N ONE (10:26)
[2016-11-07] MEDS: hydrOXYzine PAMOATE 50 MG CAPSULE (FP) PO PRN (16:49)
[2016-11-07] MEDS: LURASIDONE HCL 20 MG TABLET PO SCH (21:52)
[2016-11-07] MEDS: THIAMINE HCL 100 MG TABLET (FP) PO SCH (21:52)
[2016-11-07] MEDS: diphenhydrAMINE HCL 50 MG CAPSULE PO PRN (21:52)
[2016-11-08 07:12] VITALS: BP 115/76; TEMP 97.6
[2016-11-08] MEDS: BACITRACIN 0.9 GM PACKET TP SCH (09:36)
[2016-11-08] MEDS: SERTRALINE HCL 50 MG TABLET (FP) PO SCH (09:36)
[2016-11-08] MEDS: PRENATAL VITAMINS W/ FOLIC ACID TABLET (FP) PO SCH (09:36)
[2016-11-08] MEDS: LACTOBACILLUS ACIDOPHILUS 1 EACH TAB (FP) PO SCH (09:36)
[2016-11-08] MEDS: PANTOPRAZOLE 40 MG TABLET (FP) PO SCH (09:36)
--- NOTE | 2016-11-08 09:39 | PN ---
Psychiatric Progress Note Vital Signs: Vital Signs Period Temp Pulse Resp BP Sys/العراقي Pulse Ox Last 24 Hr 97.6 F 93 18-18 115/76 Date of Session: 11/08/16 Chief Complaint:: Discharge visit HPI: Patient addressed Alcohol and Opioid dependence comorbid with Bipolar disorder. ROS: GERD. Current Medications: Active Medications Generic Name Dose Route Start Last Admin Trade Name Freq PRN Reason Stop Dose Admin Acetaminophen 650 mg 10/08/16 14:47 Tylenol - PO Q4H PRN FEVER OR PAIN Al Hydroxide/Mg Hydroxide 30 ml 10/08/16 14:47 10/08/16 22:25 Mylanta Oral Suspension - PO 30 ml Q6H PRN Administration DYSPEPSIA Bacitracin 0.9 gm 10/14/16 22:00 11/07/16 21:52 Bacitracin - TP Not Given BID ALEXIA Colloidal Oatmeal 1 applic 10/31/16 15:02 10/31/16 15:22 Aveeno Soap - TP 1 applic DAILY PRN Administration HYGEINE Diphenhydramine HCl 50 mg 10/08/16 14:47 11/07/16 21:52 Benadryl - PO 50 mg HSMR1 PRN Administration INSOMNIA Eucalyptus/Menthol/Phenol/Sorbitol 1 each 10/08/16 14:47 Cepastat Lozenge - MM Q4H PRN SORE THROAT Guaifenesin 10 ml 10/08/16 14:47 Robitussin Dm - PO Q6H PRN COUGH Hydrocortisone 1 applic 11/01/16 18:52 11/06/16 10:45 Hytone 1% Cream - TP 1 applic QID PRN Administration DRY SKIN Hydroxyzine Pamoate 50 mg 11/01/16 11:31 11/07/16 16:49 Vistaril - PO 50 mg Q4H PRN Administration ANXIETY Ibuprofen 400 mg 10/08/16 14:47 10/18/16 08:19 Motrin - PO 400 mg Q6H PRN Administration SEVERE PAIN Lactobacillus Acidophilus 1 tab 10/14/16 15:15 11/07/16 10:20 Bacid - PO 1 tab DAILY ALEXIA Administration Loperamide HCl 4 mg 10/08/16 14:47 10/13/16 20:00 Imodium - PO 4 mg Q6H PRN Administration DIARRHEA Lurasidone HCl 60 mg 10/14/16 22:00 11/07/16 21:52 Latuda - PO 60 mg HS ALEXIA Administration Magnesium Citrate 300 ml 10/08/16 14:47 Citroma - PO Q48H PRN CONSTIPATION Magnesium Hydroxide 30 ml 10/08/16 14:47 Milk Of Magnesia - PO DAILY PRN CONSTIPATION Ondansetron HCl 8 mg 10/18/16 12:25 11/01/16 09:00 Zofran Odt - SL 8 mg Q8H PRN Administration NAUSEA AND/OR VOMITING Pantoprazole Sodium 40 mg 10/14/16 15:15 11/07/16 10:20 Protonix - PO 40 mg DAILY ALEXIA Administration Multivit/Folic Acid/Iron 1 tab 10/09/16 10:00 11/07/16 10:20 Vitamins (Sjr) - PO 1 tab DAILY ALEXIA Administration Pseudoephedrine/Triprolidine 1 combo 10/08/16 14:47 Actifed - PO TID PRN NASAL CONGESTION Sertraline HCl 150 mg 10/18/16 10:00 11/07/16 10:20 Zoloft - PO 150 mg DAILY ALEXIA Administration Thiamine HCl 100 mg 10/08/16 22:00 11/07/16 21:52 Vitamin B1 - PO 100 mg HS ALEXIA Administration Current Side Effect: No Lab tests ordered: No Lab tests reviewed: Yes Provider note:: Patient completed this program today .She has met her treatment goals and will continue to address her issues on outpatient basis at [facility] program. Patient reports finding that Latuda 60 mg po daily,Zoloft 150 mg po daily help to cope with mood instability,anxiety, depression.Scripts for 30 days provided. Patient identifies areas of difficulties and ways,coping skills,support she can utilize to maintain recovery. Supportive therapy provided.Patient is stable for discharge today. Total face to face time:: 30 Mental Status Exam - Mental Status Exam Alert and Oriented to: Time, Place, Person Cognitive Function: Grossly Intact Patient Appearance: Well Groomed Mood: Hopeful, Euthymic Affect: Appropriate, Mood Congruent Patient Behavior: Cooperative Speech Pattern: Clear Voice Loudness: Normal Thought Process: Goal Oriented Thought Disorder: Not Present Hallucinations: Denies Suicidal Ideation: Denies Homicidal Ideation: Denies Insight/Judgement: Fair Sleep: Well Appetite: Good Muscle strength/Tone: Normal Gait/Station: Normal Psychiatric Treatment Plan - Problem List (2) Ingrowing left great toenail Comment: SX REMOVAL ONE WEEK AGO. SMALL BRUISE ON TOE. NO SWELLING. (3) GERD (gastroesophageal reflux disease) Qualifiers: Esophagitis presence: without esophagitis Qualified Code(s): K21.9 - Gastro-esophageal reflux disease without esophagitis
== END 2016-11-08 09:44 | disposition home or self-care (01) | DRG 895 ==
LOC: YASAS 12:34 → Y6N 14:42 → Y3E 10-12 12:42
PROVIDERS: ADMIT Internal Medicine; ATTEND Psychiatry & Neurology Psychiatry
PROC: HZ2ZZZZ Detoxification Services for Substance Abuse Treatment (ICD-10-PCS; 2016-10-12)
PROC: HZ42ZZZ Group Counseling for Substance Abuse Treatment, Cognitive-Behavioral (ICD-10-PCS; principal; 2016-11-08)
DX: F11.20 Opioid dependence, uncomplicated (principal); F10.230 Alcohol dependence with withdrawal, uncomplicated; F31.9 Bipolar disorder, unspecified; K21.9 Gastro-esophageal reflux disease without esophagitis; L60.0 Ingrowing nail
CPT/HCPCS: 36415; 80053; 81003; 81015; 85027; 86593; 93005; 93010

== ENCOUNTER 2017-03-18 13:53 | Inpatient (IN) | payer OTHER ==
[2017-03-18 17:36] VITALS: BMI 33.7
--- NOTE | 2017-03-18 18:08 | HP ---
COWS - Scale Resting Pulse: 1= [place] 81-100 Sweatin= Chills/Flushing Restless Observation: 3= Extraneous Movement Pupil Size: 0= Normal to Room Light Bone or Joint Aches: 2= Severe Diffuse Aches Runny Nose/ Eye Tearin= Runny Nose/Eyes GI Upset > 30mins: 3= Vomiting/Diarrhea Tremor Observation: 2= Slight Tremor Visible Yawning Observation: 1= 1-2x During Session Anxiety or Irritability: 2=Irritable/Anxious Goose Flesh Skin: 0=Smooth Skin COWS Score: 17 Admission ROS S - [facility] Chief Complaint: withdrawal sx Allergies/Adverse Reactions: Allergies Allergy/AdvReac Type Severity Reaction Status Date / Time latex Allergy Severe Verified 03/18/17 17:57 No Known Drug Allergies Allergy Verified 03/18/17 18:16 History of Present Illness: 31 years old female with long history of heroin dependence has gerd asthma and bipolar ii is admitted to detox Exam Limitations: No Limitations - Ebola screening Have you traveled outside of the country in the last 21 days: No (N) Have you had contact with anyone from an Ebola affected area: No Have you been sick,other than usual withdrawal symptoms: No Do you have a fever: No - Review of Systems Constitutional: Changes in sleep, Weight Stable EENT: reports: No Symptoms Reported Respiratory: reports: SOB with Exertion Cardiac: reports: No Symptoms Reported GI: reports: Diarrhea, Nausea, Poor Fluid Intake, Indigestion, Abdominal cramping : reports: No Symptoms Reported Musculoskeletal: reports: Back Pain, Joint Pain, Muscle Pain, Neck Pain Integumentary: reports: No Symptoms Reported Neuro: reports: Tremors Endocrine: reports: No Symptoms Reported Hematology: reports: No Symptoms Reported Psychiatric: reports: Judgement Intact, Orientated x3, Anxious, Depressed Other Systems: Reviewed and Negative Patient History - Patient Medical History Hx Anemia: No Hx Asthma: Yes Hx Chronic Obstructive Pulmonary Disease (COPD): No Hx Cancer: No Hx Cardiac Disorders: No Hx Congestive Heart Failure: No Hx Hypertension: No Hx Hypercholesterolemia: No Hx Pacemaker: No HX Cerebrovascular Accident: No Hx Seizures: No Hx Dementia: No Hx Diabetes: No Hx Gastrointestinal Disorders: Yes (Gerd) Hx Liver Disease: No Hx Genitourinary Disorders: No Hx Sexually Transmitted Disorders: No Hx Renal Disease (ESRD): No Hx Thyroid Disease: No Hx Human Immunodeficiency Virus (HIV): No (NEGATIVE HX) Hx Hepatitis C: No Hx Depression: No Hx Suicide Attempt: Yes (03/12/2017 overdose) Hx Bipolar Disorder: Yes Hx Schizophrenia: No - Patient Surgical History Past Surgical History: Yes Hx Neurologic Surgery: No Hx Cataract Extraction: No Hx Cardiac Surgery: No Hx Lung Surgery: No Hx Breast Surgery: No Hx Breast Biopsy: No Hx Abdominal Surgery: No Hx Appendectomy: No Hx Cholecystectomy: No Hx Genitourinary Surgery: No Hx Section: No Hx Orthopedic Surgery: No Hx Hysterectomy: No Other Surgical History: L toe ingrown toenail removed last week. 2015 Anesthesia Reaction: No - PPD History Previous Implant?: Yes Documented Results: Negative w/proof Implanted On Prior [facility] Admission?: Yes Date: 10/10/16 PPD to be Administered?: No - Reproductive History Patient is a Female of Child Bearing Age (11 -55 yrs old): Yes Last Menstrual Period: 01/16/17 Patient : No - Smoking Cessation Smoking history: Former smoker Have you smoked in the past 12 months: No If you are a former smoker, when did you quit?: 2010 Hx Chewing Tobacco Use: No Initiated information on smoking cessation: No - Substance & Tx. History Hx Alcohol Use: Yes Hx Substance Use: Yes Substance Use Type: Alcohol, Heroin, Opiates Hx Substance Use Treatment: Yes (11/2016 [facility] - Substances Abused Alcohol Route: Oral Frequency: 1-2 times per week Amount used: LIQUOR- 1 PINT, BEER- 2 SIX PACK Age of first use: 11 Date of Last Use: 03/17/17 Codeine Route: Oral Frequency: Daily Amount used: 400mg Age of first use: 11 Date of Last Use: 03/17/17 Family Disease History - Family Disease History Family Disease History: CA: Father (), Other: Father Admission Physical Exam BHS - Vital Signs Vital Signs: Vital Signs - 24 hr 03/18/17 17:33 Temperature 98.0 F Pulse Rate 93 H Respiratory 18 Rate Blood Pressure 165/92 - Physical General Appearance: Yes: Appropriately Dressed, Mild Distress, Obese, Tremorous , Irritable, Sweating, Anxious HEENTM: Yes: Hearing grossly Normal, Normal ENT Inspection, Normocephalic, Normal Voice Respiratory: Yes: Chest Non-Tender, No Respiratory Distress, No Accessory Muscle Use, Wheezing Neck: Yes: Supple, Trachea in good position Breast: Yes: Breasts Symetrical Cardiology: Yes: Regular Rhythm, S1, S2, Tachycardia Abdominal: Yes: Non Tender, Soft, Increased Bowel Sounds Genitourinary: Yes: Within Normal Limits Back: Yes: Normal Inspection Musculoskeletal: Yes: full range of Motion, Gait Steady, Back pain, Muscle Pain Extremities: Yes: Normal Inspection, Normal Range of Motion, Non-Tender, Tremors Neurological: Yes: Fully Oriented, Alert, Motor Strength 5/5, Normal Response, Depressed Affect Integumentary: Yes: Warm Lymphatic: Yes: Within Normal Limits - Diagnostic (1) Asthma Current Visit: Yes Status: Chronic Qualifiers: Asthma severity: mild Asthma persistence: intermittent Asthma complication type: with status asthmaticus Qualified Code(s): J45.22 - Mild intermittent asthma with status asthmaticus (2) Opioid dependence with withdrawal Current Visit: Yes Status: Acute (3) Bipolar II disorder Current Visit: Yes Status: Suspected (4) GERD (gastroesophageal reflux disease) Current Visit: Yes Status: Chronic Qualifiers: Esophagitis presence: without esophagitis Qualified Code(s): K21.9 - Gastro -esophageal reflux disease without esophagitis Cleared for Admission [facility] - Detox or Rehab [facility] Level of Care: Medically Managed Detox Regimen/Protocol: Methadone [facility] Breath Alcohol Content Breath Alcohol Content: 0 Urine Pregancy Test - Result Urine Test Results: Negative- NO Line Present Urine Drug Screen - Results Drug Screen Negative: No Urine Drug Screen Results: OPI-Opiates, OXY-Oxycodone
[2017-03-18] MEDS ORDERED: MAGNESIUM CITRATE 300 ML BOTTLE PO PRN (18:12)
[2017-03-18] MEDS ORDERED: MAG HYDROX/AL HYDROX/SIMETH 30 ML UNIT-DOSE CUP PO PRN (18:12)
[2017-03-18] MEDS ORDERED: LOPERAMIDE HCL 2 MG CAPSULE PO PRN (18:12)
[2017-03-18] MEDS ORDERED: ACETAMINOPHEN 325 MG TABLET (FP) PO PRN (18:12)
[2017-03-18] MEDS ORDERED: P-EPHED 60MG/TRIPROLIDI 2.5MG TABLET PO PRN (18:12)
[2017-03-18] MEDS ORDERED: METHADONE HCL 10 MG TABLET (FOR DETOX USE ONLY) PO ONE ×2 (18:30→23:00)
[2017-03-18] MEDS: diazePAM 5 MG TABLET PO PRN ×2 (18:58→22:20)
[2017-03-18] MEDS: ALBUTEROL SO4 18 GM HFA INHALER IH PRN (20:36)
[2017-03-18] MEDS: RANITIDINE HCL 150 MG TABLET (FP) PO SCH (22:20)
[2017-03-18] MEDS: NAPROXEN 500 MG TABLET (FP) PO PRN (22:20)
[2017-03-18] MEDS: THIAMINE HCL 100 MG TABLET (FP) PO SCH (22:20)
[2017-03-18 23:25] LABS: URINE APPEARANCE SLCLOUDY; URINE BILIRUBIN NEGATIVE (NEGATIVE); URINE BLOOD 2+ (NEGATIVE); URINE COLOR YELLOW; URINE GLUCOSE (UA) NEGATIVE (NEGATIVE); URINE KETONE NEGATIVE (NEGATIVE); URINE LEUK ESTERASE NEGATIVE (NEGATIVE); URINE NITRITE NEGATIVE (NEGATIVE); URINE PROTEIN NEGATIVE (NEGATIVE); URINE UROBILINOGEN NEGATIVE mg/dL (0.2-1.0)
[2017-03-18 23:37] LABS: AMORP URATES MODERATE /hpf (NONE SEEN)
[2017-03-19] MEDS: ALBUTEROL SO4 18 GM HFA INHALER IH PRN ×2 (05:09→14:15)
[2017-03-19] MEDS: ALBUTEROL SO4 0.083% IH SOL 2.5 MG/3 ML VIAL.NEB. NEB PRN ×2 (05:28→18:22)
[2017-03-19] MEDS: diazePAM 5 MG TABLET PO PRN ×3 (06:00→22:23)
--- NOTE | 2017-03-19 07:47 | CONSULT ---
[facility] Psychiatric Consult - Data Date of interview: 03/19/17 Admission source: [facility] Identifying data: This is 31 years old female with history of psychiatric hospitalization , history of Bip[olar Disroder, intoxicayed with: Opioids and Alcohol Substance Abuse History: - Smoking Cessation. Smoking history: Former smoker. Have you smoked in the past 12 months: No. If you are a former smoker, when did you quit?: 2010. Hx Chewing Tobacco Use: No. Initiated information on smoking cessation: No. - Substance & Tx. History. Hx Alcohol Use: Yes. Hx Substance Use: Yes. Substance Use Type: Alcohol, Heroin, Opiates. Hx Substance Use Treatment: Yes (11/2016 [facility]). - Substances Abused. Alcohol. Route: Oral. Frequency: 1-2 times per week. Amount used: LIQUOR- 1 PINT, BEER- 2 SIX PACK. Age of first use: 11. Date of Last Use: 03/17/17. Codeine. Route: Oral. Frequency: Daily. Amount used: 400mg. Age of first use : 11. Date of Last Use: 03/17/17 Medical History: Asthma, GERD Psychiatric History: Patient reports [facility] psychiatric admission on 2015 at [facility] for safety, reports to carry Bipolar Disorder, reports taking prior to admission: Latuda 60MG PO QHS. Zoloft 150mg poqd Physical/Sexual Abuse/Trauma History: Denies Additional Comment: Latuda 60mg po qhs. Zoloft 150mg poqd Mental Status Exam - Mental Status Exam Alert and Oriented to: Person Cognitive Function: Fair Patient Appearance: Unkempt Mood: Sad Affect: Flat Patient Behavior: Cooperative Speech Pattern: Appropriate Voice Loudness: Normal Thought Process: Circumstantial Thought Disorder: Being Controlled Hallucinations: Denies Suicidal Ideation: Denies Homicidal Ideation: Denies Insight/Judgement: Fair Sleep: Difficulty falling asleep Appetite: Fair Muscle strength/Tone: Mild Hypotonicity Gait/Station: Shuffling Additional Comments: Latuda 60mg po qhs. Zoloft 150mg poqd Psychiatric Findings - Problem List ([place] 1, 2,3) (1) Opioid dependence with withdrawal Current Visit: Yes Status: Acute (2) Bipolar II disorder Current Visit: Yes Status: Suspected (3) Alcohol dependence with uncomplicated withdrawal Current Visit: No Status: Acute (4) Alcohol dependence Current Visit: No Status: Chronic (5) Bipolar disorder Current Visit: No Status: Chronic (6) Opioid dependence Current Visit: No Status: Chronic - Initial Treatment Plan Initial Treatment Plan: Latuda 60mg po qhs. Zoloft 150mg poqd
--- NOTE | 2017-03-19 09:39 | EKG ---
Test Reason : Blood Pressure : / mmHG Vent. Rate : 092 BPM Atrial Rate : 092 BPM P-R Int : 130 ms QRS Dur : 092 ms QT Int : 338 ms P-R-T Axes : 065 038 052 degrees QTc Int : 417 ms NORMAL SINUS RHYTHM RIGHT ATRIAL ENLARGEMENT BORDERLINE ECG WHEN COMPARED WITH ECG OF 08-OCT-2016 16:24, NO SIGNIFICANT CHANGE WAS FOUND Confirmed by JOSI BATES, NEHEMIAH ([id number]) on 03/19/2017 9:38:49 AM Referred By: Confirmed By:NEHEMIAH PRATER MD
[2017-03-19] MEDS ORDERED: METHADONE HCL 10 MG TABLET (FOR DETOX USE ONLY) PO ONE (10:00)
[2017-03-19 10:16] LABS: HEMATOCRIT 42.5 % (32.4-45.2); HEMOGLOBIN 13.6 GM/dL (10.7-15.3); MCH 27.9 pg (25.7-33.7); MEAN CELL VOLUME 87.1 fl (80-96); MEAN PLT VOLUME 7.7 fl (7.5-11.1); PLATELET COUNT 346 K/MM3 (134-434); RBC 4.88 M/mm3 (3.60-5.2); RDW 15.4 % (11.6-15.6); WHITE BLOOD COUNT 13.6 K/mm3 (4.0-10.0)
[2017-03-19] MEDS: SERTRALINE HCL 50 MG TABLET (FP) PO SCH (10:20)
[2017-03-19] MEDS: PRENATAL VITAMINS W/ FOLIC ACID TABLET (FP) PO SCH (10:20)
[2017-03-19] MEDS: RANITIDINE HCL 150 MG TABLET (FP) PO SCH ×2 (10:20→22:23)
[2017-03-19 10:24] LABS: CHLORIDE 103 mmol/L (98-107); POTASSIUM 3.4 mmol/L (3.5-5.1); SODIUM 138 mmol/L (136-145)
[2017-03-19 10:33] LABS: ALBUMIN 3.9 g/dl (3.4-5.0); ALK PHOS 106 U/L (45-117); ANION GAP 12 (8-16); BILIRUBIN,TOTAL 0.5 mg/dL (0.2-1.0); BLOOD UREA NITROGEN 11 mg/dL (7-18); CALCIUM 9.1 mg/dL (8.5-10.1); CO2 23 mmol/L (21-32); CREATININE 0.9 mg/dL (0.55-1.02); GLUCOSE,RANDOM 147 mg/dL (74-106); SGOT/AST 13 U/L (15-37); SGPT/ALT 29 U/L (12-78)
--- NOTE | 2017-03-19 10:45 | PN ---
BHS COWS - Scale Resting Pulse: 1= [place] 81-100 Sweatin=Flushed/Facial Moisture Restless Observation: 3= Extraneous Movement Pupil Size: 1= Pupils >than Normal Bone or Joint Aches: 1= Mild Discomfort Runny Nose/ Eye Tearin= Nasal Congestion GI Upset > 30mins: 0= None Tremor Observation of Outstretched Hands: 2= Slight Tremor Visible Yawning Observation: 0= None Anxiety or Irritability: 2=Irritable/Anxious Goose Flesh Skin: 0=Smooth Skin COWS Score: 13 BHS Progress Note (SOAP) Subjective: Anxiety sleeplessness diarrhea requesting to read mandaeism material Objective: 03/19/17 10:42 anxious no acute distress Last Vital Signs Temp Pulse Resp BP Pulse Ox 97 F L 100 H 20 127/87 03/19/17 06:33 03/19/17 06:33 03/19/17 06:33 03/19/17 06:33 Laboratory Last Values WBC 13.6 K/mm3 (4.0-10.0) H D 03/19/17 06:00 RBC 4.88 M/mm3 (3.60-5.2) 03/19/17 06:00 Hgb 13.6 GM/dL (10.7-15.3) 03/19/17 06:00 Hct 42.5 % (32.4-45.2) 03/19/17 06:00 MCV 87.1 fl (80-96) 03/19/17 06:00 MCH 27.9 pg (25.7-33.7) 03/19/17 06:00 MCHC 32.0 g/dl (32.0-36.0) 03/19/17 06:00 RDW 15.4 % (11.6-15.6) 03/19/17 06:00 Plt Count 346 K/MM3 (134-434) 03/19/17 06:00 MPV 7.7 fl (7.5-11.1) D 03/19/17 06:00 Sodium 138 mmol/L (136-145) 03/19/17 06:00 Potassium 3.4 mmol/L (3.5-5.1) L D 03/19/17 06:00 Chloride 103 mmol/L (98-107) 03/19/17 06:00 Carbon Dioxide 23 mmol/L (21-32) 03/19/17 06:00 Anion Gap 12 (8-16) 03/19/17 06:00 BUN 11 mg/dL (7-18) D 03/19/17 06:00 Creatinine 0.9 mg/dL (0.55-1.02) D 03/19/17 06:00 Creat Clearance w eGFR > 60 (>60) 03/19/17 06:00 Random Glucose 147 mg/dL (74-106) H D 03/19/17 06:00 Calcium 9.1 mg/dL (8.5-10.1) 03/19/17 06:00 Total Bilirubin 0.5 mg/dL (0.2-1.0) 03/19/17 06:00 AST 13 U/L (15-37) L D 03/19/17 06:00 ALT 29 U/L (12-78) 03/19/17 06:00 Alkaline Phosphatase 106 U/L (45-117) 03/19/17 06:00 Total Protein 7.0 g/dl (6.4-8.2) 03/19/17 06:00 Albumin 3.9 g/dl (3.4-5.0) 03/19/17 06:00 Urine Color Yellow 03/18/17 21:20 Urine Appearance Slcloudy 03/18/17 21:20 Urine pH 6.0 (5.0-8.0) 03/18/17 21:20 Ur Specific [place] 1.017 (1.001-1.035) 03/18/17 21:20 Urine Protein Negative (NEGATIVE) 03/18/17 21:20 Urine Glucose (UA) Negative (NEGATIVE) 03/18/17 21:20 Urine Ketones Negative (NEGATIVE) 03/18/17 21:20 Urine Blood 2+ (NEGATIVE) H 03/18/17 21:20 Urine Nitrite Negative (NEGATIVE) 03/18/17 21:20 Urine Bilirubin Negative (NEGATIVE) 03/18/17 21:20 Urine Urobilinogen Negative mg/dL (0.2-1.0) 03/18/17 21:20 Ur Leukocyte Esterase Negative (NEGATIVE) 03/18/17 21:20 Urine WBC (Auto) None /hpf (3-5) 03/18/17 21:20 Urine RBC (Auto) 4 /hpf (0-3) 03/18/17 21:20 Amorphous Urates Moderate /hpf (NONE SEEN) 03/18/17 21:20 labs noted, low potassium Assessment: 03/19/17 10:44 withdrawal sx Plan: continue detox potassium supplement
[2017-03-19] MEDS ORDERED: POTASSIUM CHLORIDE TABS 20 MEQ TABLET.ER (FP) PO ONE (13:40)
[2017-03-19] MEDS: LURASIDONE HCL 20 MG TABLET PO SCH (22:23)
[2017-03-19] MEDS: THIAMINE HCL 100 MG TABLET (FP) PO SCH (22:23)
[2017-03-19] MEDS: NAPROXEN 500 MG TABLET (FP) PO PRN (22:23)
[2017-03-20] MEDS: guaiFENesin/D-METHORPHAN HB 10 ML UNIT-DOSE CUPS PO PRN ×2 (05:51→19:12)
[2017-03-20] MEDS: diazePAM 5 MG TABLET PO PRN ×4 (05:53→22:12)
[2017-03-20] MEDS: MENTHOL/PHENOL 1 EACH UD MM PRN ×2 (05:53→11:45)
[2017-03-20] MEDS ORDERED: METHADONE HCL 5 MG TABLET (FOR DETOX USE ONLY) PO ONE (10:00)
[2017-03-20] MEDS: PRENATAL VITAMINS W/ FOLIC ACID TABLET (FP) PO SCH (11:04)
[2017-03-20] MEDS: SERTRALINE HCL 50 MG TABLET (FP) PO SCH (11:04)
[2017-03-20] MEDS: POTASSIUM CHLORIDE TABS 20 MEQ TABLET.ER (FP) PO SCH (11:04)
[2017-03-20] MEDS: RANITIDINE HCL 150 MG TABLET (FP) PO SCH ×2 (11:05→22:12)
[2017-03-20] MEDS: ALBUTEROL SO4 0.083% IH SOL 2.5 MG/3 ML VIAL.NEB. NEB PRN ×2 (11:20→19:48)
[2017-03-20] MEDS: ALBUTEROL SO4 18 GM HFA INHALER IH PRN ×2 (12:39→16:25)
--- NOTE | 2017-03-20 12:39 | PN ---
BHS Progress Note Note: pt bump her left big toe when she opened her door, no cut no bruising no swelling noted. encourage to put ice and ask for motrin if pain persist. pt in agreement.
[2017-03-20] MEDS: MAGNESIUM HYDROX 2400MG/30ML ORAL SUSPENSION 30 ML CUP PO PRN (20:51)
[2017-03-20] MEDS: THIAMINE HCL 100 MG TABLET (FP) PO SCH (22:12)
[2017-03-20] MEDS: LURASIDONE HCL 20 MG TABLET PO SCH (22:13)
[2017-03-21] MEDS: ALBUTEROL SO4 0.083% IH SOL 2.5 MG/3 ML VIAL.NEB. NEB PRN (02:30)
[2017-03-21] MEDS: diazePAM 5 MG TABLET PO PRN ×2 (06:07→11:00)
[2017-03-21] MEDS: ALBUTEROL SO4 18 GM HFA INHALER IH PRN (06:08)
[2017-03-21] MEDS: MENTHOL/PHENOL 1 EACH UD MM PRN (06:10)
[2017-03-21] MEDS: guaiFENesin/D-METHORPHAN HB 10 ML UNIT-DOSE CUPS PO PRN (08:45)
[2017-03-21] MEDS ORDERED: METHADONE HCL 5 MG TABLET (FOR DETOX USE ONLY) PO ONE (10:00)
[2017-03-21] MEDS: PRENATAL VITAMINS W/ FOLIC ACID TABLET (FP) PO SCH (11:00)
[2017-03-21] MEDS: POTASSIUM CHLORIDE TABS 20 MEQ TABLET.ER (FP) PO SCH (11:00)
[2017-03-21] MEDS: SERTRALINE HCL 50 MG TABLET (FP) PO SCH (11:00)
[2017-03-21] MEDS: RANITIDINE HCL 150 MG TABLET (FP) PO SCH ×2 (11:00→22:21)
--- NOTE | 2017-03-21 12:59 | PN ---
BHS COWS - Scale Resting Pulse: 1= [place] 81-100 Sweatin=Flushed/Facial Moisture Restless Observation: 1= Difficult to Sit Still Pupil Size: 0= Normal to Room Light Bone or Joint Aches: 1= Mild Discomfort Runny Nose/ Eye Tearin= Runny Nose/Eyes GI Upset > 30mins: 0= None Tremor Observation of Outstretched Hands: 2= Slight Tremor Visible Yawning Observation: 2= >3x During Session Anxiety or Irritability: 2=Irritable/Anxious Goose Flesh Skin: 0=Smooth Skin COWS Score: 13 BHS Progress Note (SOAP) Subjective: cough sweats irritable shakes interrupted sleep Objective: 03/20/17 12:57 Vital Signs Temperature 98.1 F 03/21/17 10:42 Pulse Rate 100 H 03/21/17 10:42 Respiratory Rate 16 03/21/17 10:42 Blood Pressure 116/64 03/21/17 10:42 O2 Sat by Pulse Oximetry (%) Laboratory Tests 03/18/17 03/19/17 03/19/17 21:20 06:00 06:00 WBC 13.6 H D RBC 4.88 Hgb 13.6 Hct 42.5 MCV 87.1 MCH 27.9 MCHC 32.0 RDW 15.4 Plt Count 346 MPV 7.7 D Sodium 138 Potassium 3.4 L D Chloride 103 Carbon Dioxide 23 Anion Gap 12 BUN 11 D Creatinine 0.9 D Creat Clearance w eGFR > 60 Random Glucose 147 H D Calcium 9.1 Total Bilirubin 0.5 AST 13 L D ALT 29 Alkaline Phosphatase 106 Total Protein 7.0 Albumin 3.9 Urine Color Yellow Urine Appearance Slcloudy Urine pH 6.0 Ur Specific [place] 1.017 Urine Protein Negative Urine Glucose (UA) Negative Urine Ketones Negative Urine Blood 2+ H Urine Nitrite Negative Urine Bilirubin Negative Urine Urobilinogen Negative Ur Leukocyte Esterase Negative Urine WBC (Auto) None Urine RBC (Auto) 4 Amorphous Urates Moderate RPR Titer 03/19/17 06:00 WBC RBC Hgb Hct MCV MCH MCHC RDW Plt Count MPV Sodium Potassium Chloride Carbon Dioxide Anion Gap BUN Creatinine Creat Clearance w eGFR Random Glucose Calcium Total Bilirubin AST ALT Alkaline Phosphatase Total Protein Albumin Urine Color Urine Appearance Urine pH Ur Specific [place] Urine Protein Urine Glucose (UA) Urine Ketones Urine Blood Urine Nitrite Urine Bilirubin Urine Urobilinogen Ur Leukocyte Esterase Urine WBC (Auto) Urine RBC (Auto) Amorphous Urates RPR Titer Nonreactive aaox3 ambulating no acute distress Assessment: 03/20/17 12:58 withdrawal sx Plan: increase fluids continue detox
--- NOTE | 2017-03-21 13:04 | PN ---
BHS Progress Note (SOAP) Subjective: cough sweats agitation Objective: 03/21/17 13:03 Vital Signs Temperature 98.1 F 03/21/17 10:42 Pulse Rate 100 H 03/21/17 10:42 Respiratory Rate 16 03/21/17 10:42 Blood Pressure 116/64 03/21/17 10:42 O2 Sat by Pulse Oximetry (%) aaox3 ambulating no acute distress Assessment: 03/21/17 13:04 withdrawal sx Plan: continue detox increase fluids chest x-ray ordered
[2017-03-21] MEDS ORDERED: AZITHROMYCIN 250 MG TABLET PO ONE (14:16)
--- NOTE | 2017-03-21 14:47 | PN ---
BHS Progress Note Note: chest x-ray reviewed; no pna reported. pt made aware
[2017-03-21] MEDS: THIAMINE HCL 100 MG TABLET (FP) PO SCH (22:21)
[2017-03-21] MEDS: NAPROXEN 500 MG TABLET (FP) PO PRN (22:21)
[2017-03-22] MEDS: LURASIDONE HCL 20 MG TABLET PO SCH ×2 (01:08→23:07)
[2017-03-22] MEDS ORDERED: METHADONE HCL 10 MG TABLET (FOR DETOX USE ONLY) PO ONE (10:00)
[2017-03-22] MEDS: SERTRALINE HCL 50 MG TABLET (FP) PO SCH (10:58)
[2017-03-22] MEDS: PRENATAL VITAMINS W/ FOLIC ACID TABLET (FP) PO SCH (10:59)
[2017-03-22] MEDS: AZITHROMYCIN 250 MG TABLET PO SCH (10:59)
[2017-03-22] MEDS: RANITIDINE HCL 150 MG TABLET (FP) PO SCH ×2 (10:59→23:10)
[2017-03-22] MEDS: ALBUTEROL SO4 0.083% IH SOL 2.5 MG/3 ML VIAL.NEB. NEB PRN ×2 (10:59→20:25)
--- NOTE | 2017-03-22 14:39 | PN ---
BHS Progress Note (SOAP) Subjective: sweats cough "needs asthma tx" Objective: 03/22/17 14:35 Vital Signs Temperature 98.2 F 03/22/17 13:50 Pulse Rate 104 H 03/22/17 13:50 Respiratory Rate 18 03/22/17 13:50 Blood Pressure 111/72 03/22/17 13:50 O2 Sat by Pulse Oximetry (%) Assessment: 03/22/17 14:36 withdrawal sx lungs clear, + breath sounds, no resp distress noted Plan: continue detox d/c tomorrow
[2017-03-22] MEDS: MAGNESIUM HYDROX 2400MG/30ML ORAL SUSPENSION 30 ML CUP PO PRN (18:19)
[2017-03-22] MEDS: hydrOXYzine PAMOATE 50 MG CAPSULE (FP) PO PRN (18:19)
[2017-03-22] MEDS: THIAMINE HCL 100 MG TABLET (FP) PO SCH (23:05)
[2017-03-23] MEDS ORDERED: METHADONE HCL 5 MG TABLET (FOR DETOX USE ONLY) PO ONE (06:00)
[2017-03-23] MEDS: hydrOXYzine PAMOATE 50 MG CAPSULE (FP) PO PRN (07:54)
--- NOTE | 2017-03-23 09:32 | DS ---
[facility] Detox Discharge Summary Admission Date: 03/18/17 Discharge Date: 03/23/17 - History Present History: Opioid Dependence - Physical Exam Results Vital Signs: Vital Signs Temperature 98.1 F 03/23/17 06:00 Pulse Rate 90 03/23/17 06:00 Respiratory Rate 18 03/23/17 06:00 Blood Pressure 113/75 03/23/17 06:00 O2 Sat by Pulse Oximetry (%) Pertinent Admission Physical Exam Findings: withdrawal sx Vital Signs Temperature 98.1 F 03/23/17 06:00 Pulse Rate 90 03/23/17 06:00 Respiratory Rate 18 03/23/17 06:00 Blood Pressure 113/75 03/23/17 06:00 O2 Sat by Pulse Oximetry (%) Laboratory Last Values WBC 13.6 K/mm3 (4.0-10.0) H D 03/19/17 06:00 RBC 4.88 M/mm3 (3.60-5.2) 03/19/17 06:00 Hgb 13.6 GM/dL (10.7-15.3) 03/19/17 06:00 Hct 42.5 % (32.4-45.2) 03/19/17 06:00 MCV 87.1 fl (80-96) 03/19/17 06:00 MCH 27.9 pg (25.7-33.7) 03/19/17 06:00 MCHC 32.0 g/dl (32.0-36.0) 03/19/17 06:00 RDW 15.4 % (11.6-15.6) 03/19/17 06:00 Plt Count 346 K/MM3 (134-434) 03/19/17 06:00 MPV 7.7 fl (7.5-11.1) D 03/19/17 06:00 Sodium 138 mmol/L (136-145) 03/19/17 06:00 Potassium 3.4 mmol/L (3.5-5.1) L D 03/19/17 06:00 Chloride 103 mmol/L (98-107) 03/19/17 06:00 Carbon Dioxide 23 mmol/L (21-32) 03/19/17 06:00 Anion Gap 12 (8-16) 03/19/17 06:00 BUN 11 mg/dL (7-18) D 03/19/17 06:00 Creatinine 0.9 mg/dL (0.55-1.02) D 03/19/17 06:00 Creat Clearance w eGFR > 60 (>60) 03/19/17 06:00 Random Glucose 147 mg/dL (74-106) H D 03/19/17 06:00 Calcium 9.1 mg/dL (8.5-10.1) 03/19/17 06:00 Total Bilirubin 0.5 mg/dL (0.2-1.0) 03/19/17 06:00 AST 13 U/L (15-37) L D 03/19/17 06:00 ALT 29 U/L (12-78) 03/19/17 06:00 Alkaline Phosphatase 106 U/L (45-117) 03/19/17 06:00 Total Protein 7.0 g/dl (6.4-8.2) 03/19/17 06:00 Albumin 3.9 g/dl (3.4-5.0) 03/19/17 06:00 Urine Color Yellow 03/18/17 21:20 Urine Appearance Slcloudy 03/18/17 21:20 Urine pH 6.0 (5.0-8.0) 03/18/17 21:20 Ur Specific [place] 1.017 (1.001-1.035) 03/18/17 21:20 Urine Protein Negative (NEGATIVE) 03/18/17 21:20 Urine Glucose (UA) Negative (NEGATIVE) 03/18/17 21:20 Urine Ketones Negative (NEGATIVE) 03/18/17 21:20 Urine Blood 2+ (NEGATIVE) H 03/18/17 21:20 Urine Nitrite Negative (NEGATIVE) 03/18/17 21:20 Urine Bilirubin Negative (NEGATIVE) 03/18/17 21:20 Urine Urobilinogen Negative mg/dL (0.2-1.0) 03/18/17 21:20 Ur Leukocyte Esterase Negative (NEGATIVE) 03/18/17 21:20 Urine WBC (Auto) None /hpf (3-5) 03/18/17 21:20 Urine RBC (Auto) 4 /hpf (0-3) 03/18/17 21:20 Amorphous Urates Moderate /hpf (NONE SEEN) 03/18/17 21:20 RPR Titer Nonreactive (NONREACTIVE) 03/19/17 06:00 lab noted - Treatment Hospital Course: Detox Protocol Followed, Detoxed Safely, Responded well, Discharged Condition Good, Rehab Referral Accepted Patient has Accepted a Rehab Referral to: inpatient rehab revoluation - Medication Discharge Medications: Ambulatory Orders Famotidine [Pepcid -] 20 mg PO BID 10/08/16 Sertraline HCl [Zoloft -] 150 mg PO DAILY #90 tablet 11/08/16 Albuterol Sulfate Inhaler - [Ventolin Hfa Inhaler -] 1 - 2 inh PO QID PRN Lurasidone HCl [Latuda -] 60 mg PO HS #30 tablet 03/19/17 Sertraline HCl [Zoloft -] 150 mg PO DAILY #30 tablet 03/19/17 - Diagnosis (1) Asthma Current Visit: Yes Status: Chronic Qualifiers: Asthma severity: mild Asthma persistence: intermittent Asthma complication type: with status asthmaticus Qualified Code(s): J45.22 - Mild intermittent asthma with status asthmaticus (2) Opioid dependence with withdrawal Current Visit: Yes Status: Acute (3) Bipolar II disorder Current Visit: Yes Status: Suspected (4) GERD (gastroesophageal reflux disease) Current Visit: Yes Status: Chronic Qualifiers: Esophagitis presence: without esophagitis Qualified Code(s): K21.9 - Gastro -esophageal reflux disease without esophagitis - AMA Did Patient Leave Against Medical Advice: No
[2017-03-23] MEDS ORDERED: LOPERAMIDE HCL 2 MG CAPSULE PO PRN (09:57)
[2017-03-23] MEDS ORDERED: MAG HYDROX/AL HYDROX/SIMETH 30 ML UNIT-DOSE CUP PO PRN (09:57)
[2017-03-23] MEDS ORDERED: MENTHOL/PHENOL 1 EACH UD MM PRN (09:57)
[2017-03-23] MEDS ORDERED: IBUPROFEN 400 MG TABLET (FP) PO PRN (09:57)
[2017-03-23] MEDS ORDERED: guaiFENesin/D-METHORPHAN HB 10 ML UNIT-DOSE CUPS PO PRN (09:57)
[2017-03-23] MEDS ORDERED: ACETAMINOPHEN 325 MG TABLET (FP) PO PRN (09:57)
[2017-03-23] MEDS ORDERED: MAGNESIUM HYDROX 2400MG/30ML ORAL SUSPENSION 30 ML CUP PO PRN (09:57)
[2017-03-23] MEDS ORDERED: MAGNESIUM CITRATE 300 ML BOTTLE PO PRN (09:57)
[2017-03-23] MEDS ORDERED: NICOTINE 14 MG/24 HOURS TOPICAL PATCH TD PRN (09:57)
[2017-03-23] MEDS ORDERED: P-EPHED 60MG/TRIPROLIDI 2.5MG TABLET PO PRN (09:57)
--- NOTE | 2017-03-23 10:03 | HP ---
JULIA BATES Rehab Assess/Revision - Admission History Admitted to Rehab from: [facility] Date of Admission to Rehab: 03/23/17 - Vital signs Vital Signs: Vital Signs Period Temp Pulse Resp BP Sys/العراقي Pulse Ox Last 24 Hr 97.9 F-98.2 F 90-113 18-20 111-133/72-83 - Findings Detox History & Physical reviewed: Yes Concur with findings: Yes Comments/Additional Findings: transferred from detox to rehab admission as per protocol
[2017-03-23] MEDS: AZITHROMYCIN 250 MG TABLET PO SCH (10:35)
[2017-03-23] MEDS: RANITIDINE HCL 150 MG TABLET (FP) PO SCH ×2 (10:35→21:26)
[2017-03-23] MEDS: SERTRALINE HCL 50 MG TABLET (FP) PO SCH (10:35)
[2017-03-23] MEDS: PRENATAL VITAMINS W/ FOLIC ACID TABLET (FP) PO SCH (12:17)
[2017-03-23] MEDS: ALBUTEROL SO4 2.5/IPRATROPIUM 0.5 INH SOL 3 ML VIAL.NEB. NEB PRN (20:12)
[2017-03-23] MEDS: LURASIDONE HCL 20 MG TABLET PO SCH (21:26)
[2017-03-23] MEDS: THIAMINE HCL 100 MG TABLET (FP) PO SCH (21:26)
[2017-03-24] MEDS ORDERED: PT OWN MED DRAWER 7, Y5N ONE ×2 (08:26→19:41)
[2017-03-24] MEDS: PRENATAL VITAMINS W/ FOLIC ACID TABLET (FP) PO SCH (09:40)
[2017-03-24] MEDS: RANITIDINE HCL 150 MG TABLET (FP) PO SCH ×2 (09:40→21:25)
[2017-03-24] MEDS: SERTRALINE HCL 50 MG TABLET (FP) PO SCH (09:41)
[2017-03-24] MEDS: AZITHROMYCIN 250 MG TABLET PO SCH (10:30)
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
[2017-03-24] MEDS: THIAMINE HCL 100 MG TABLET (FP) PO SCH (21:25)
[2017-03-24] MEDS: LURASIDONE HCL 20 MG TABLET PO SCH (21:25)
[2017-03-25] MEDS: ALBUTEROL SO4 2.5/IPRATROPIUM 0.5 INH SOL 3 ML VIAL.NEB. NEB PRN (08:44)
[2017-03-25] MEDS ORDERED: PT OWN MED DRAWER 7, Y5N ONE (09:06)
[2017-03-25] MEDS: PRENATAL VITAMINS W/ FOLIC ACID TABLET (FP) PO SCH (10:25)
[2017-03-25] MEDS: RANITIDINE HCL 150 MG TABLET (FP) PO SCH ×2 (10:25→21:21)
[2017-03-25] MEDS: SERTRALINE HCL 50 MG TABLET (FP) PO SCH (10:26)
[2017-03-25] MEDS: AZITHROMYCIN 250 MG TABLET PO SCH (12:18)
--- NOTE | 2017-03-25 13:05 | PN ---
S Progress Note (SOAP) Subjective: PATEINT C/O PROTRACTED OPIOID WITHDRAWAL, exacerbation of asthma 2/2 nasalcongestion urti Objective: 03/25/17 13:04 Vital Signs - 24 hr 03/25/17 03/25/17 03/25/17 00:30 07:21 12:35 Temperature 97.9 F 97.4 F L Pulse Rate 90 101 H Respiratory 16 18 18 Rate Blood Pressure 122/86 121/88 Laboratory Tests 03/18/17 03/19/17 03/19/17 21:20 06:00 06:00 WBC 13.6 H D RBC 4.88 Hgb 13.6 Hct 42.5 MCV 87.1 MCH 27.9 MCHC 32.0 RDW 15.4 Plt Count 346 MPV 7.7 D Sodium 138 Potassium 3.4 L D Chloride 103 Carbon Dioxide 23 Anion Gap 12 BUN 11 D Creatinine 0.9 D Creat Clearance w eGFR > 60 Random Glucose 147 H D Calcium 9.1 Total Bilirubin 0.5 AST 13 L D ALT 29 Alkaline Phosphatase 106 Total Protein 7.0 Albumin 3.9 Urine Color Yellow Urine Appearance Slcloudy Urine pH 6.0 Ur Specific [place] 1.017 Urine Protein Negative Urine Glucose (UA) Negative Urine Ketones Negative Urine Blood 2+ H Urine Nitrite Negative Urine Bilirubin Negative Urine Urobilinogen Negative Ur Leukocyte Esterase Negative Urine WBC (Auto) None Urine RBC (Auto) 4 Amorphous Urates Moderate RPR Titer 03/19/17 06:00 WBC RBC Hgb Hct MCV MCH MCHC RDW Plt Count MPV Sodium Potassium Chloride Carbon Dioxide Anion Gap BUN Creatinine Creat Clearance w eGFR Random Glucose Calcium Total Bilirubin AST ALT Alkaline Phosphatase Total Protein Albumin Urine Color Urine Appearance Urine pH Ur Specific [place] Urine Protein Urine Glucose (UA) Urine Ketones Urine Blood Urine Nitrite Urine Bilirubin Urine Urobilinogen Ur Leukocyte Esterase Urine WBC (Auto) Urine RBC (Auto) Amorphous Urates RPR Titer Nonreactive hypokalemia Assessment: 03/25/17 13:04 opioid withdrawal sx - start subxone 2mg, can adjust dose upwards until adequate when trav [place] [facility] [place] relief of withdrawl and urti, start flonase, clariti atc scheduled meds.
[2017-03-25] MEDS: BUPRENORPHINE/NALOXONE 2 MG/0.5 MG FILM PACKET SL SCH (15:27)
[2017-03-25] MEDS: POTASSIUM CHLORIDE TABS 20 MEQ TABLET.ER (FP) PO SCH ×2 (15:27→21:21)
[2017-03-25] MEDS: cloNIDine HCL 0.1 MG TABLET PO SCH ×2 (15:28→21:21)
[2017-03-25] MEDS: NAPROXEN 500 MG TABLET (FP) PO SCH ×2 (15:28→21:21)
[2017-03-25] MEDS: CYCLOBENZAPRINE HCL 5 MG TABLET PO SCH ×2 (15:28→21:21)
[2017-03-25] MEDS: LORATADINE 10 MG TABLET PO SCH (15:28)
[2017-03-25] MEDS: FLUTICASONE PROP 0.05% 16 GM NASAL SPRAY NS SCH (15:29)
[2017-03-25] MEDS: THIAMINE HCL 100 MG TABLET (FP) PO SCH (21:21)
[2017-03-25] MEDS: LURASIDONE HCL 20 MG TABLET PO SCH (21:22)
[2017-03-25] MEDS ORDERED: INSULIN (NOVOLOG) ASPART 100 UNITS/ML 10ML VIAL ONE (22:55)
[2017-03-25] MEDS ORDERED: INSULIN DETEMIR 100 UNITS/ML MDV SQ ONE (22:55)
[2017-03-26] MEDS: CYCLOBENZAPRINE HCL 5 MG TABLET PO SCH ×3 (06:49→21:24)
[2017-03-26] MEDS: cloNIDine HCL 0.1 MG TABLET PO SCH ×2 (09:44→21:24)
[2017-03-26] MEDS: LORATADINE 10 MG TABLET PO SCH (09:45)
[2017-03-26] MEDS: PRENATAL VITAMINS W/ FOLIC ACID TABLET (FP) PO SCH (09:45)
[2017-03-26] MEDS: POTASSIUM CHLORIDE TABS 20 MEQ TABLET.ER (FP) PO SCH ×2 (09:45→21:24)
[2017-03-26] MEDS: SERTRALINE HCL 50 MG TABLET (FP) PO SCH (09:45)
[2017-03-26] MEDS: FLUTICASONE PROP 0.05% 16 GM NASAL SPRAY NS SCH (09:46)
[2017-03-26] MEDS: AZITHROMYCIN 250 MG TABLET PO SCH (09:46)
[2017-03-26] MEDS: BUPRENORPHINE/NALOXONE 2 MG/0.5 MG FILM PACKET SL SCH (09:46)
[2017-03-26] MEDS: NAPROXEN 500 MG TABLET (FP) PO SCH ×2 (09:46→21:25)
[2017-03-26] MEDS: RANITIDINE HCL 150 MG TABLET (FP) PO SCH ×2 (09:46→21:24)
[2017-03-26] MEDS: THIAMINE HCL 100 MG TABLET (FP) PO SCH (21:24)
[2017-03-26] MEDS: GABAPENTIN 100 MG CAPSULE (FP) PO SCH (21:26)
[2017-03-26] MEDS: LURASIDONE HCL 20 MG TABLET PO SCH (21:26)
[2017-03-27] MEDS: GABAPENTIN 100 MG CAPSULE (FP) PO SCH ×3 (06:20→21:18)
[2017-03-27] MEDS: CYCLOBENZAPRINE HCL 5 MG TABLET PO SCH (06:20)
[2017-03-27] MEDS ORDERED: PT OWN MED DRAWER 7, Y5N ONE ×2 (08:44→13:22)
[2017-03-27] MEDS: LORATADINE 10 MG TABLET PO SCH (09:57)
[2017-03-27] MEDS: cloNIDine HCL 0.1 MG TABLET PO SCH (09:57)
[2017-03-27] MEDS: SERTRALINE HCL 50 MG TABLET (FP) PO SCH (09:57)
[2017-03-27] MEDS: POTASSIUM CHLORIDE TABS 20 MEQ TABLET.ER (FP) PO SCH (09:58)
[2017-03-27] MEDS: PRENATAL VITAMINS W/ FOLIC ACID TABLET (FP) PO SCH (09:58)
[2017-03-27] MEDS: RANITIDINE HCL 150 MG TABLET (FP) PO SCH (09:58)
[2017-03-27] MEDS: NAPROXEN 500 MG TABLET (FP) PO SCH (09:58)
[2017-03-27] MEDS: BUPRENORPHINE/NALOXONE 2 MG/0.5 MG FILM PACKET SL SCH (09:58)
[2017-03-27] MEDS: FLUTICASONE PROP 0.05% 16 GM NASAL SPRAY NS SCH (09:58)
[2017-03-27] MEDS: THIAMINE HCL 100 MG TABLET (FP) PO SCH (21:18)
[2017-03-27] MEDS: LURASIDONE HCL 20 MG TABLET PO SCH (21:18)
[2017-03-28] MEDS: GABAPENTIN 100 MG CAPSULE (FP) PO SCH ×3 (06:33→21:22)
[2017-03-28 09:57] LABS: BASO % 0.4 % (0-2.0); EOS % 1.1 % (0-4.5); HEMATOCRIT 41.3 % (32.4-45.2); HEMOGLOBIN 13.3 GM/dL (10.7-15.3); LYMPH % 38.8 % (8-40); MCH 28.4 pg (25.7-33.7); MCHC 32.3 g/dl (32.0-36.0); MEAN CELL VOLUME 87.8 fl (80-96); MEAN PLT VOLUME 6.9 fl (7.5-11.1); MONO % 6.1 % (3.8-10.2); NEUT % 53.6 % (42.8-82.8); PLATELET COUNT 257 K/MM3 (134-434); RDW 16.1 % (11.6-15.6); WHITE BLOOD COUNT 8.8 K/mm3 (4.0-10.0)
[2017-03-28 10:10] LABS: CHLORIDE 100 mmol/L (98-107); POTASSIUM 4.4 mmol/L (3.5-5.1); SODIUM 137 mmol/L (136-145)
[2017-03-28] MEDS: SERTRALINE HCL 50 MG TABLET (FP) PO SCH (10:16)
[2017-03-28] MEDS: LORATADINE 10 MG TABLET PO SCH (10:16)
[2017-03-28] MEDS: FLUTICASONE PROP 0.05% 16 GM NASAL SPRAY NS SCH (10:16)
[2017-03-28] MEDS: PRENATAL VITAMINS W/ FOLIC ACID TABLET (FP) PO SCH (10:16)
[2017-03-28] MEDS: BUPRENORPHINE/NALOXONE 2 MG/0.5 MG FILM PACKET SL SCH (10:17)
[2017-03-28 10:19] LABS: ALBUMIN 3.6 g/dl (3.4-5.0); ALK PHOS 113 U/L (45-117); ANION GAP 6 (8-16); BILIRUBIN,TOTAL 0.4 mg/dL (0.2-1.0); BLOOD UREA NITROGEN 16 mg/dL (7-18); CALCIUM 8.7 mg/dL (8.5-10.1); CO2 31 mmol/L (21-32); CREATININE 0.7 mg/dL (0.55-1.02); GLUCOSE,RANDOM 83 mg/dL (74-106); SGOT/AST 8 U/L (15-37); SGPT/ALT 29 U/L (12-78); TOT PROT 6.6 g/dl (6.4-8.2)
[2017-03-28] MEDS ORDERED: PT OWN MED DRAWER 7, Y5N ONE ×3 (11:05→21:24)
--- NOTE | 2017-03-28 13:41 | PN ---
Psychiatric Progress Note Vital Signs: Vital Signs Period Temp Pulse Resp BP Sys/العراقي Pulse Ox Last 24 Hr 97.3 F 73 16-16 113/83 Date of Session: 03/28/17 Chief Complaint:: "Shaun still depressed,sad,upset." HPI: patient addressed Alcohol and Opioid dependence comorbid with Bipolar II disorder,PTSD. ROS: BA,GERD. Current Medications: Active Medications Generic Name Dose Route Start Last Admin Trade Name Freq PRN Reason Stop Dose Admin Acetaminophen 650 mg 03/23/17 09:57 Tylenol - PO Q4H PRN FEVER Al Hydroxide/Mg Hydroxide 30 ml 03/23/17 09:57 Mylanta Oral Suspension - PO Q6H PRN DYSPEPSIA Albuterol Sulfate 2 puff 03/18/17 18:14 03/21/17 06:08 Ventolin Hfa Inhaler - IH 2 inh QID PRN Administration ASTHMA Albuterol/Ipratropium 1 amp 03/23/17 14:37 03/25/17 08:44 Duoneb - NEB 1 amp Q4H PRN Administration SHORTNESS OF BREATH Buprenorphine/Naloxone 1 each 03/25/17 13:55 03/28/17 10:17 Suboxone 2mg/0.5mg Sl Film - SL 04/01/17 13:54 1 each DAILY ALEXIA Administration Eucalyptus/Menthol/Phenol/Sorbitol 1 each 03/23/17 09:57 Cepastat Lozenge - MM Q4H PRN SORE THROAT Fluticasone Propionate 1 spray 03/25/17 13:47 03/28/17 10:16 Flonase - NS 1 spray DAILY ALEXIA Administration Gabapentin 100 mg 03/26/17 22:00 03/28/17 13:07 Neurontin - PO 100 mg TID ALEXIA Administration Guaifenesin 10 ml 03/23/17 09:57 Robitussin Dm - PO Q6H PRN COUGH Hydroxyzine Pamoate 50 mg 03/22/17 17:59 03/23/17 07:54 Vistaril - PO 50 mg Q6H PRN Administration FOR ITCHING Loperamide HCl 4 mg 03/23/17 09:57 Imodium - PO Q6H PRN DIARRHEA Loratadine 10 mg 03/25/17 13:48 03/28/17 10:16 Claritin - PO 10 mg DAILY ALEXIA Administration Lurasidone HCl 60 mg 03/19/17 22:00 03/27/17 21:18 Latuda - PO 60 mg HS ALEXIA Administration Magnesium Citrate 300 ml 03/23/17 09:57 Citroma - PO Q48H PRN CONSTIPATION Magnesium Hydroxide 30 ml 03/23/17 09:57 03/28/17 12:22 Milk Of Magnesia - PO 30 ml DAILY PRN Administration CONSTIPATION Nicotine 14 mg 03/23/17 09:57 Nicoderm Patch - TD DAILY PRN WITHDRAWAL(CONT SUBST) Nicotine Polacrilex 2 mg 03/23/17 09:57 Nicorette Gum - BUC Q2H PRN NICOTINE REPLACEMENT RX Multivit/Folic Acid/Iron 1 tab 03/23/17 10:00 03/28/17 10:16 Vitamins (Sjr) - PO 1 tab DAILY ALEXIA Administration Sertraline HCl 100 mg 03/29/17 10:00 Zoloft - PO DAILY ALEXIA Thiamine HCl 100 mg 03/23/17 22:00 03/27/17 21:18 Vitamin B1 - PO 100 mg HS ALEXIA Administration Current Side Effect: No Lab tests ordered: No Lab tests reviewed: Yes Provider note:: Chart was revuewed,patient was evaluated .She addressed depressed mood,anxiety,sleeping difficulties.Medication management has been discussed with the patient .Properties of Zoloft including side effects and benefits has been discussed as well. Supportive therapy provided. Zoloft 150 mg po daily will be adjusted to 200 mg po daily. Continue Latuda 60 mg po hs, Neurontin 100 mg po tid. Total face to face time:: 30 Mental Status Exam - Mental Status Exam Alert and Oriented to: Time, Place, Person Cognitive Function: Grossly Intact Patient Appearance: Well Groomed Mood: Sad Affect: Mood Congruent Patient Behavior: Cooperative Speech Pattern: Clear Voice Loudness: Normal Thought Process: Goal Oriented Thought Disorder: Not Present Hallucinations: Denies Suicidal Ideation: Denies Homicidal Ideation: Denies Insight/Judgement: Fair Sleep: Difficulty falling asleep Appetite: Good Muscle strength/Tone: Normal Gait/Station: Normal Psychiatric Treatment Plan - Problem List (1) Asthma Current Visit: Yes Qualifiers: Asthma severity: mild Asthma persistence: intermittent Asthma complication type: with status asthmaticus Qualified Code(s): J45.22 - Mild intermittent asthma with status asthmaticus (2) GERD (gastroesophageal reflux disease) Current Visit: Yes Qualifiers: Esophagitis presence: without esophagitis Qualified Code(s): K21.9 - Gastro -esophageal reflux disease without esophagitis (3) Bipolar II disorder Current Visit: Yes (4) Alcohol dependence Current Visit: Yes (5) Opioid dependence Current Visit: Yes (6) PTSD (post-traumatic stress disorder) Current Visit: Yes
[2017-03-28] MEDS: ALBUTEROL SO4 2.5/IPRATROPIUM 0.5 INH SOL 3 ML VIAL.NEB. NEB PRN (16:59)
[2017-03-28] MEDS: LURASIDONE HCL 20 MG TABLET PO SCH (21:22)
[2017-03-28] MEDS: THIAMINE HCL 100 MG TABLET (FP) PO SCH (21:22)
[2017-03-29] MEDS: GABAPENTIN 100 MG CAPSULE (FP) PO SCH ×3 (06:12→21:17)
[2017-03-29] MEDS ORDERED: SERTRALINE HCL 50 MG TABLET (FP) PO SCH (10:00)
[2017-03-29] MEDS: PRENATAL VITAMINS W/ FOLIC ACID TABLET (FP) PO SCH (10:05)
[2017-03-29] MEDS: LORATADINE 10 MG TABLET PO SCH (10:05)
[2017-03-29] MEDS: FLUTICASONE PROP 0.05% 16 GM NASAL SPRAY NS SCH (10:05)
[2017-03-29] MEDS: BUPRENORPHINE/NALOXONE 2 MG/0.5 MG FILM PACKET SL SCH (10:05)
[2017-03-29] MEDS: SERTRALINE HCL 50 MG TABLET (FP) PO SCH (10:05)
[2017-03-29] MEDS: LURASIDONE HCL 20 MG TABLET PO SCH (21:17)
[2017-03-29] MEDS: THIAMINE HCL 100 MG TABLET (FP) PO SCH (21:18)
[2017-03-30] MEDS: GABAPENTIN 100 MG CAPSULE (FP) PO SCH ×3 (06:03→21:41)
[2017-03-30] MEDS ORDERED: PT OWN MED DRAWER 7, Y5N ONE (08:27)
[2017-03-30] MEDS: FLUTICASONE PROP 0.05% 16 GM NASAL SPRAY NS SCH (09:43)
[2017-03-30] MEDS: SERTRALINE HCL 50 MG TABLET (FP) PO SCH (09:44)
[2017-03-30] MEDS: PRENATAL VITAMINS W/ FOLIC ACID TABLET (FP) PO SCH (09:44)
[2017-03-30] MEDS: BUPRENORPHINE/NALOXONE 2 MG/0.5 MG FILM PACKET SL SCH (09:44)
[2017-03-30] MEDS: LORATADINE 10 MG TABLET PO SCH (09:44)
[2017-03-30] MEDS: hydrOXYzine PAMOATE 50 MG CAPSULE (FP) PO PRN (18:47)
[2017-03-30] MEDS: THIAMINE HCL 100 MG TABLET (FP) PO SCH (21:41)
[2017-03-30] MEDS: LURASIDONE HCL 20 MG TABLET PO SCH (21:42)
[2017-03-31] MEDS: GABAPENTIN 100 MG CAPSULE (FP) PO SCH ×3 (06:25→21:32)
[2017-03-31] MEDS: LORATADINE 10 MG TABLET PO SCH (09:55)
[2017-03-31] MEDS: PRENATAL VITAMINS W/ FOLIC ACID TABLET (FP) PO SCH (09:56)
[2017-03-31] MEDS: FLUTICASONE PROP 0.05% 16 GM NASAL SPRAY NS SCH (09:56)
[2017-03-31] MEDS: SERTRALINE HCL 50 MG TABLET (FP) PO SCH (09:56)
[2017-03-31] MEDS: BUPRENORPHINE/NALOXONE 2 MG/0.5 MG FILM PACKET SL SCH (09:57)
[2017-03-31] MEDS: ALBUTEROL SO4 2.5/IPRATROPIUM 0.5 INH SOL 3 ML VIAL.NEB. NEB PRN (12:42)
[2017-03-31] MEDS: THIAMINE HCL 100 MG TABLET (FP) PO SCH (21:32)
[2017-03-31] MEDS ORDERED: PT OWN MED DRAWER 7, Y5N ONE (21:32)
[2017-03-31] MEDS: LURASIDONE HCL 20 MG TABLET PO SCH (21:33)
[2017-04-01] MEDS: GABAPENTIN 100 MG CAPSULE (FP) PO SCH ×3 (06:24→21:10)
[2017-04-01] MEDS: BUPRENORPHINE/NALOXONE 2 MG/0.5 MG FILM PACKET SL SCH (10:18)
[2017-04-01] MEDS: LORATADINE 10 MG TABLET PO SCH (10:18)
[2017-04-01] MEDS: PRENATAL VITAMINS W/ FOLIC ACID TABLET (FP) PO SCH (10:18)
[2017-04-01] MEDS: SERTRALINE HCL 50 MG TABLET (FP) PO SCH (10:18)
[2017-04-01] MEDS: FLUTICASONE PROP 0.05% 16 GM NASAL SPRAY NS SCH (10:18)
[2017-04-01] MEDS: hydrOXYzine PAMOATE 50 MG CAPSULE (FP) PO PRN ×2 (12:51→21:12)
[2017-04-01] MEDS ORDERED: PT OWN MED DRAWER 7, Y5N ONE (16:58)
[2017-04-01] MEDS: LURASIDONE HCL 20 MG TABLET PO SCH (21:10)
[2017-04-01] MEDS: THIAMINE HCL 100 MG TABLET (FP) PO SCH (21:11)
[2017-04-02] MEDS: GABAPENTIN 100 MG CAPSULE (FP) PO SCH ×3 (06:29→21:26)
[2017-04-02] MEDS: FLUTICASONE PROP 0.05% 16 GM NASAL SPRAY NS SCH (10:10)
[2017-04-02] MEDS: LORATADINE 10 MG TABLET PO SCH (10:11)
[2017-04-02] MEDS: PRENATAL VITAMINS W/ FOLIC ACID TABLET (FP) PO SCH (10:11)
[2017-04-02] MEDS: SERTRALINE HCL 50 MG TABLET (FP) PO SCH (10:11)
[2017-04-02] MEDS: BUPRENORPHINE/NALOXONE 2 MG/0.5 MG FILM PACKET SL SCH (10:11)
[2017-04-02] MEDS: NICOTINE POLACRILEX 2 MG GUM BUC PRN (15:39)
[2017-04-02] MEDS ORDERED: PT OWN MED DRAWER 7, Y5N ONE ×2 (19:21→20:38)
[2017-04-02] MEDS: ALBUTEROL SO4 18 GM HFA INHALER IH PRN (20:39)
[2017-04-02] MEDS: THIAMINE HCL 100 MG TABLET (FP) PO SCH (21:26)
[2017-04-02] MEDS: LURASIDONE HCL 20 MG TABLET PO SCH (21:26)
[2017-04-03] MEDS: GABAPENTIN 100 MG CAPSULE (FP) PO SCH ×3 (06:22→21:46)
[2017-04-03] MEDS ORDERED: PT OWN MED DRAWER 7, Y5N ONE (08:58)
[2017-04-03] MEDS: FLUTICASONE PROP 0.05% 16 GM NASAL SPRAY NS SCH (10:30)
[2017-04-03] MEDS: BUPRENORPHINE/NALOXONE 2 MG/0.5 MG FILM PACKET SL SCH (10:30)
[2017-04-03] MEDS: LORATADINE 10 MG TABLET PO SCH (10:31)
[2017-04-03] MEDS: SERTRALINE HCL 50 MG TABLET (FP) PO SCH (10:31)
[2017-04-03] MEDS: PRENATAL VITAMINS W/ FOLIC ACID TABLET (FP) PO SCH (10:31)
[2017-04-03] MEDS: RANITIDINE HCL 150 MG TABLET (FP) PO SCH ×2 (10:32→21:44)
--- NOTE | 2017-04-03 10:33 | EKG ---
Test Reason : Blood Pressure : / mmHG Vent. Rate : 093 BPM Atrial Rate : 093 BPM P-R Int : 144 ms QRS Dur : 092 ms QT Int : 360 ms P-R-T Axes : 069 032 046 degrees QTc Int : 447 ms NORMAL SINUS RHYTHM POSSIBLE LEFT ATRIAL ENLARGEMENT BORDERLINE ECG WHEN COMPARED WITH ECG OF 18-MAR-2017 19:03, NO SIGNIFICANT CHANGE WAS FOUND Confirmed by KAT SRINIVASAN MD ([id number]) on 04/03/2017 10:33:16 AM Referred By: Confirmed By:KAT SRINIVASAN MD
[2017-04-03] MEDS ORDERED: ALBUTEROL SO4 2.5/IPRATROPIUM 0.5 INH SOL 3 ML VIAL.NEB. NEB PRN (13:17)
[2017-04-03] MEDS: THIAMINE HCL 100 MG TABLET (FP) PO SCH (21:44)
[2017-04-03] MEDS: LURASIDONE HCL 20 MG TABLET PO SCH (21:45)
[2017-04-04] MEDS: GABAPENTIN 100 MG CAPSULE (FP) PO SCH ×3 (06:50→21:44)
[2017-04-04] MEDS: RANITIDINE HCL 150 MG TABLET (FP) PO SCH ×2 (10:38→21:44)
[2017-04-04] MEDS: LORATADINE 10 MG TABLET PO SCH (10:38)
[2017-04-04] MEDS: SERTRALINE HCL 50 MG TABLET (FP) PO SCH (10:38)
[2017-04-04] MEDS: BUPRENORPHINE/NALOXONE 2 MG/0.5 MG FILM PACKET SL SCH ×2 (10:39→21:46)
[2017-04-04] MEDS: PRENATAL VITAMINS W/ FOLIC ACID TABLET (FP) PO SCH (10:39)
[2017-04-04] MEDS: FLUTICASONE PROP 0.05% 16 GM NASAL SPRAY NS SCH (10:39)
[2017-04-04] MEDS: ALBUTEROL SO4 18 GM HFA INHALER IH PRN (13:21)
[2017-04-04] MEDS ORDERED: PT OWN MED DRAWER 7, Y5N ONE (13:23)
[2017-04-04] MEDS: THIAMINE HCL 100 MG TABLET (FP) PO SCH (21:44)
[2017-04-04] MEDS: LURASIDONE HCL 20 MG TABLET PO SCH (21:45)
[2017-04-05] MEDS: GABAPENTIN 100 MG CAPSULE (FP) PO SCH ×3 (06:31→21:49)
[2017-04-05] MEDS: FLUTICASONE PROP 0.05% 16 GM NASAL SPRAY NS SCH (09:07)
[2017-04-05] MEDS: PRENATAL VITAMINS W/ FOLIC ACID TABLET (FP) PO SCH (09:07)
[2017-04-05] MEDS: SERTRALINE HCL 50 MG TABLET (FP) PO SCH (09:07)
[2017-04-05] MEDS: RANITIDINE HCL 150 MG TABLET (FP) PO SCH ×2 (09:07→21:48)
[2017-04-05] MEDS: LORATADINE 10 MG TABLET PO SCH (09:07)
[2017-04-05] MEDS: BUPRENORPHINE/NALOXONE 2 MG/0.5 MG FILM PACKET SL SCH ×2 (09:08→21:48)
[2017-04-05] MEDS: THIAMINE HCL 100 MG TABLET (FP) PO SCH (21:48)
[2017-04-05] MEDS: LURASIDONE HCL 20 MG TABLET PO SCH (21:49)
[2017-04-06] MEDS: GABAPENTIN 100 MG CAPSULE (FP) PO SCH ×3 (06:57→21:39)
[2017-04-06] MEDS: LORATADINE 10 MG TABLET PO SCH (09:15)
[2017-04-06] MEDS: FLUTICASONE PROP 0.05% 16 GM NASAL SPRAY NS SCH (09:15)
[2017-04-06] MEDS: RANITIDINE HCL 150 MG TABLET (FP) PO SCH ×2 (09:15→21:39)
[2017-04-06] MEDS: PRENATAL VITAMINS W/ FOLIC ACID TABLET (FP) PO SCH (09:15)
[2017-04-06] MEDS: SERTRALINE HCL 50 MG TABLET (FP) PO SCH (09:15)
[2017-04-06] MEDS: BUPRENORPHINE/NALOXONE 2 MG/0.5 MG FILM PACKET SL SCH ×2 (09:16→21:39)
[2017-04-06] MEDS: LURASIDONE HCL 20 MG TABLET PO SCH (21:38)
[2017-04-06] MEDS: THIAMINE HCL 100 MG TABLET (FP) PO SCH (21:39)
[2017-04-07] MEDS: GABAPENTIN 100 MG CAPSULE (FP) PO SCH ×2 (06:50→13:27)
[2017-04-07] MEDS ORDERED: PT OWN MED DRAWER 7, Y5N ONE ×2 (09:00→21:55)
[2017-04-07] MEDS: LORATADINE 10 MG TABLET PO SCH (10:38)
[2017-04-07] MEDS: FLUTICASONE PROP 0.05% 16 GM NASAL SPRAY NS SCH (10:38)
[2017-04-07] MEDS: RANITIDINE HCL 150 MG TABLET (FP) PO SCH ×2 (10:38→21:54)
[2017-04-07] MEDS: SERTRALINE HCL 50 MG TABLET (FP) PO SCH (10:38)
[2017-04-07] MEDS: PRENATAL VITAMINS W/ FOLIC ACID TABLET (FP) PO SCH (10:38)
[2017-04-07] MEDS: BUPRENORPHINE/NALOXONE 2 MG/0.5 MG FILM PACKET SL SCH (10:38)
[2017-04-07] MEDS ORDERED: COLLOIDAL OATMEAL 1 BAR EACH TP PRN (14:22)
--- NOTE | 2017-04-07 14:27 | PN ---
[facility] Progress Note (SOAP) Subjective: c/o opioid withdrwawl sx on low dose of suboxone, athletes foot, dry skin Objective: 04/07/17 14:25 Vital Signs - 8 hr 04/07/17 07:36 Temperature 98.2 F Pulse Rate 80 Respiratory 18 Rate Blood Pressure 125/87 Laboratory Tests 03/18/17 03/19/17 03/19/17 21:20 06:00 06:00 WBC 13.6 H D RBC 4.88 Hgb 13.6 Hct 42.5 MCV 87.1 MCH 27.9 MCHC 32.0 RDW 15.4 Plt Count 346 MPV 7.7 D Neutrophils % Lymphocytes % Monocytes % Eosinophils % Basophils % Sodium 138 Potassium 3.4 L D Chloride 103 Carbon Dioxide 23 Anion Gap 12 BUN 11 D Creatinine 0.9 D Creat Clearance w eGFR > 60 POC Glucometer Random Glucose 147 H D Calcium 9.1 Total Bilirubin 0.5 AST 13 L D ALT 29 Alkaline Phosphatase 106 Total Protein 7.0 Albumin 3.9 Urine Color Yellow Urine Appearance Slcloudy Urine pH 6.0 Ur Specific [place] 1.017 Urine Protein Negative Urine Glucose (UA) Negative Urine Ketones Negative Urine Blood 2+ H Urine Nitrite Negative Urine Bilirubin Negative Urine Urobilinogen Negative Ur Leukocyte Esterase Negative Urine WBC (Auto) None Urine RBC (Auto) 4 Amorphous Urates Moderate RPR Titer 03/19/17 03/26/17 03/27/17 06:00 06:48 06:19 WBC RBC Hgb Hct MCV MCH MCHC RDW Plt Count MPV Neutrophils % Lymphocytes % Monocytes % Eosinophils % Basophils % Sodium Potassium Chloride Carbon Dioxide Anion Gap BUN Creatinine Creat Clearance w eGFR POC Glucometer 90 87 Random Glucose Calcium Total Bilirubin AST ALT Alkaline Phosphatase Total Protein Albumin Urine Color Urine Appearance Urine pH Ur Specific [place] Urine Protein Urine Glucose (UA) Urine Ketones Urine Blood Urine Nitrite Urine Bilirubin Urine Urobilinogen Ur Leukocyte Esterase Urine WBC (Auto) Urine RBC (Auto) Amorphous Urates RPR Titer Nonreactive 03/28/17 03/28/17 07:15 07:15 WBC 8.8 D RBC 4.70 Hgb 13.3 Hct 41.3 MCV 87.8 MCH 28.4 MCHC 32.3 RDW 16.1 H Plt Count 257 D MPV 6.9 L D Neutrophils % 53.6 Lymphocytes % 38.8 Monocytes % 6.1 Eosinophils % 1.1 Basophils % 0.4 Sodium 137 Potassium 4.4 Chloride 100 Carbon Dioxide 31 Anion Gap 6 L BUN 16 Creatinine 0.7 Creat Clearance w eGFR > 60 POC Glucometer Random Glucose 83 Calcium 8.7 Total Bilirubin 0.4 AST 8 L ALT 29 Alkaline Phosphatase 113 Total Protein 6.6 Albumin 3.6 Urine Color Urine Appearance Urine pH Ur Specific [place] Urine Protein Urine Glucose (UA) Urine Ketones Urine Blood Urine Nitrite Urine Bilirubin Urine Urobilinogen Ur Leukocyte Esterase Urine WBC (Auto) Urine RBC (Auto) Amorphous Urates RPR Titer Assessment: 04/07/17 14:26 inadequate suboxone dosage increase to 8mg daily, arranged for f/u coney islan, tinactin, aveeno sopa and lachydrin for dry skin ordered.
[2017-04-07] MEDS ORDERED: BUPRENORPHINE/NALOXONE 2 MG/0.5 MG FILM PACKET SL ONE (14:55)
--- NOTE | 2017-04-07 15:39 | PN ---
Psychiatric Progress Note Vital Signs: Vital Signs Period Temp Pulse Resp BP Sys/العراقي Pulse Ox Last 24 Hr 98.2 F 80 16-18 125/87 Date of Session: 04/07/17 Chief Complaint:: "I am drowsy every day from Neurontin,please d/c this medication." HPI: Patient addressed Alcohol and opioid dependence comorbid with PTSD, Bordeline Personality disorder,Bipolar disorder. ROS: GERD, Current Medications: Active Medications Generic Name Dose Route Start Last Admin Trade Name Freq PRN Reason Stop Dose Admin Acetaminophen 650 mg 03/23/17 09:57 Tylenol - PO Q4H PRN FEVER Al Hydroxide/Mg Hydroxide 30 ml 03/23/17 09:57 Mylanta Oral Suspension - PO Q6H PRN DYSPEPSIA Albuterol Sulfate 2 puff 03/18/17 18:14 04/04/17 13:21 Ventolin Hfa Inhaler - IH 2 inh QID PRN Administration ASTHMA Albuterol/Ipratropium 1 amp 04/03/17 13:17 Duoneb - NEB Q4H PRN SHORTNESS OF BREATH Buprenorphine/Naloxone 1 each 04/08/17 10:00 Suboxone 8mg/2mg Sl Film - SL 04/14/17 09:59 DAILY ALEXIA Colloidal Oatmeal 1 applic 04/07/17 14:22 Aveeno Soap - TP DAILY PRN HYGEINE Eucalyptus/Menthol/Phenol/Sorbitol 1 each 03/23/17 09:57 Cepastat Lozenge - MM Q4H PRN SORE THROAT Fluticasone Propionate 1 spray 03/25/17 13:47 04/07/17 10:38 Flonase - NS 1 spray DAILY ALEXIA Administration Guaifenesin 10 ml 03/23/17 09:57 03/28/17 20:44 Robitussin Dm - PO 10 ml Q6H PRN Administration COUGH Hydroxyzine Pamoate 50 mg 03/22/17 17:59 04/01/17 21:12 Vistaril - PO 50 mg Q6H PRN Administration FOR ITCHING Lactic Acid 1 applic 04/07/17 14:23 Lac-Hydrin 12 TP BID PRN DRY SKIN Loperamide HCl 4 mg 03/23/17 09:57 Imodium - PO Q6H PRN DIARRHEA Loratadine 10 mg 03/25/17 13:48 04/07/17 10:38 Claritin - PO 10 mg DAILY ALEXIA Administration Lurasidone HCl 60 mg 03/19/17 22:00 04/06/17 21:38 Latuda - PO 60 mg HS ALEXIA Administration Magnesium Citrate 300 ml 03/23/17 09:57 Citroma - PO Q48H PRN CONSTIPATION Magnesium Hydroxide 30 ml 03/23/17 09:57 03/28/17 12:22 Milk Of Magnesia - PO 30 ml DAILY PRN Administration CONSTIPATION Nicotine 14 mg 03/23/17 09:57 Nicoderm Patch - TD DAILY PRN WITHDRAWAL(CONT SUBST) Nicotine Polacrilex 2 mg 03/23/17 09:57 04/02/17 15:39 Nicorette Gum - BUC 2 mg Q2H PRN Administration NICOTINE REPLACEMENT RX Multivit/Folic Acid/Iron 1 tab 03/23/17 10:00 04/07/17 10:38 Vitamins (Sjr) - PO 1 tab DAILY ALEXIA Administration Ranitidine HCl 150 mg 04/03/17 10:00 04/07/17 10:38 Zantac - PO 150 mg BID ALEXIA Administration Sertraline HCl 200 mg 03/29/17 10:00 04/07/17 10:38 Zoloft - PO 200 mg DAILY ALEXIA Administration Thiamine HCl 100 mg 03/23/17 22:00 04/06/17 21:39 Vitamin B1 - PO 100 mg HS ALEXIA Administration Tolnaftate 1 applic 04/07/17 22:00 Tinactin 1% Cream - TP BID ALEXIA Current Side Effect: No Lab tests ordered: No Lab tests reviewed: Yes Provider note:: Chart was revuewed ,patient was evaluated .She reports side effects from Neurontin:"It makes me drowsy and tired."Patient is willing to d/c Neurontin.She will continue Zoloft 200 mg po daily,Latuda 60 mg po daily.Patient made some progress during her treatment.She reports being less anxiuos,less overwelmed.Patient is participating in groups,other activities. Supportive therapy provided. Total face to face time:: 25 Psychiatric Treatment Plan - Problem List (1) Asthma Current Visit: Yes Qualifiers: Asthma severity: mild Asthma persistence: intermittent Asthma complication type: with status asthmaticus Qualified Code(s): J45.22 - Mild intermittent asthma with status asthmaticus (2) GERD (gastroesophageal reflux disease) Current Visit: Yes Qualifiers: Esophagitis presence: without esophagitis Qualified Code(s): K21.9 - Gastro -esophageal reflux disease without esophagitis (3) Bipolar II disorder Current Visit: Yes (4) Alcohol dependence Current Visit: Yes (5) Opioid dependence Current Visit: Yes (6) PTSD (post-traumatic stress disorder) Current Visit: Yes (7) Borderline personality disorder Current Visit: Yes
[2017-04-07] MEDS: THIAMINE HCL 100 MG TABLET (FP) PO SCH (21:53)
[2017-04-07] MEDS: LURASIDONE HCL 20 MG TABLET PO SCH (21:54)
[2017-04-07] MEDS: TOLNAFTATE 1% CREAM 15 GM TUBE TP SCH (21:56)
[2017-04-08] MEDS ORDERED: ALBUTEROL SO4 2.5/IPRATROPIUM 0.5 INH SOL 3 ML VIAL.NEB. NEB PRN (07:25)
[2017-04-08] MEDS ORDERED: PT OWN MED DRAWER 7, Y5N ONE ×2 (08:36→10:41)
[2017-04-08] MEDS: PRENATAL VITAMINS W/ FOLIC ACID TABLET (FP) PO SCH (10:39)
[2017-04-08] MEDS: LORATADINE 10 MG TABLET PO SCH (10:39)
[2017-04-08] MEDS: SERTRALINE HCL 50 MG TABLET (FP) PO SCH (10:39)
[2017-04-08] MEDS: BUPRENORPHINE/NALOXONE 8 MG/2 MG FILM PACKET SL SCH (10:39)
[2017-04-08] MEDS: RANITIDINE HCL 150 MG TABLET (FP) PO SCH ×2 (10:40→21:52)
[2017-04-08] MEDS: FLUTICASONE PROP 0.05% 16 GM NASAL SPRAY NS SCH (10:42)
[2017-04-08] MEDS: TOLNAFTATE 1% CREAM 15 GM TUBE TP SCH ×2 (10:42→21:53)
[2017-04-08] MEDS: SUMAtriptan SUCCINATE 25 MG TABLET PO PRN (15:26)
[2017-04-08] MEDS: THIAMINE HCL 100 MG TABLET (FP) PO SCH (21:52)
[2017-04-08] MEDS: LURASIDONE HCL 20 MG TABLET PO SCH (21:53)
[2017-04-08] MEDS: NICOTINE POLACRILEX 2 MG GUM BUC PRN (21:54)
[2017-04-09] MEDS: LORATADINE 10 MG TABLET PO SCH (10:24)
[2017-04-09] MEDS: RANITIDINE HCL 150 MG TABLET (FP) PO SCH ×2 (10:24→21:41)
[2017-04-09] MEDS: SERTRALINE HCL 50 MG TABLET (FP) PO SCH (10:24)
[2017-04-09] MEDS: PRENATAL VITAMINS W/ FOLIC ACID TABLET (FP) PO SCH (10:25)
[2017-04-09] MEDS: TOLNAFTATE 1% CREAM 15 GM TUBE TP SCH ×2 (10:25→21:42)
[2017-04-09] MEDS: FLUTICASONE PROP 0.05% 16 GM NASAL SPRAY NS SCH (10:25)
[2017-04-09] MEDS: BUPRENORPHINE/NALOXONE 8 MG/2 MG FILM PACKET SL SCH (10:25)
[2017-04-09] MEDS: SUMAtriptan SUCCINATE 25 MG TABLET PO PRN (10:27)
[2017-04-09] MEDS: NICOTINE POLACRILEX 2 MG GUM BUC PRN (13:33)
[2017-04-09] MEDS ORDERED: ONDANSETRON *ODT* 4 MG TABLET SL PRN (14:47)
[2017-04-09] MEDS ORDERED: ONDANSETRON *ODT* 4 MG TABLET SL ONE (15:07)
[2017-04-09] MEDS: THIAMINE HCL 100 MG TABLET (FP) PO SCH (21:41)
[2017-04-09] MEDS: LURASIDONE HCL 20 MG TABLET PO SCH (21:42)
[2017-04-10] MEDS ORDERED: PT OWN MED DRAWER 7, Y5N ONE ×2 (08:53→19:55)
[2017-04-10] MEDS: FLUTICASONE PROP 0.05% 16 GM NASAL SPRAY NS SCH (10:31)
[2017-04-10] MEDS: SERTRALINE HCL 50 MG TABLET (FP) PO SCH (10:31)
[2017-04-10] MEDS: PRENATAL VITAMINS W/ FOLIC ACID TABLET (FP) PO SCH (10:31)
[2017-04-10] MEDS: BUPRENORPHINE/NALOXONE 8 MG/2 MG FILM PACKET SL SCH (10:31)
[2017-04-10] MEDS: LORATADINE 10 MG TABLET PO SCH (10:31)
[2017-04-10] MEDS: RANITIDINE HCL 150 MG TABLET (FP) PO SCH ×2 (10:31→21:37)
[2017-04-10] MEDS: TOLNAFTATE 1% CREAM 15 GM TUBE TP SCH ×2 (10:31→21:35)
--- NOTE | 2017-04-10 15:12 | PN ---
[facility] Progress Note (SOAP) Subjective: c/o of opiod withdrawal symptoms Objective: 04/10/17 15:10 Laboratory Last Values WBC 8.8 K/mm3 (4.0-10.0) D 03/28/17 07:15 RBC 4.70 M/mm3 (3.60-5.2) 03/28/17 07:15 Hgb 13.3 GM/dL (10.7-15.3) 03/28/17 07:15 Hct 41.3 % (32.4-45.2) 03/28/17 07:15 MCV 87.8 fl (80-96) 03/28/17 07:15 MCH 28.4 pg (25.7-33.7) 03/28/17 07:15 MCHC 32.3 g/dl (32.0-36.0) 03/28/17 07:15 RDW 16.1 % (11.6-15.6) H 03/28/17 07:15 Plt Count 257 K/MM3 (134-434) D 03/28/17 07:15 MPV 6.9 fl (7.5-11.1) L D 03/28/17 07:15 Neutrophils % 53.6 % (42.8-82.8) 03/28/17 07:15 Lymphocytes % 38.8 % (8-40) 03/28/17 07:15 Monocytes % 6.1 % (3.8-10.2) 03/28/17 07:15 Eosinophils % 1.1 % (0-4.5) 03/28/17 07:15 Basophils % 0.4 % (0-2.0) 03/28/17 07:15 Sodium 137 mmol/L (136-145) 03/28/17 07:15 Potassium 4.4 mmol/L (3.5-5.1) 03/28/17 07:15 Chloride 100 mmol/L (98-107) 03/28/17 07:15 Carbon Dioxide 31 mmol/L (21-32) 03/28/17 07:15 Anion Gap 6 (8-16) L 03/28/17 07:15 BUN 16 mg/dL (7-18) 03/28/17 07:15 Creatinine 0.7 mg/dL (0.55-1.02) 03/28/17 07:15 Creat Clearance w eGFR > 60 (>60) 03/28/17 07:15 POC Glucometer 87 UNITS (80-120) 03/27/17 06:19 Random Glucose 83 mg/dL (74-106) 03/28/17 07:15 Calcium 8.7 mg/dL (8.5-10.1) 03/28/17 07:15 Total Bilirubin 0.4 mg/dL (0.2-1.0) 03/28/17 07:15 AST 8 U/L (15-37) L 03/28/17 07:15 ALT 29 U/L (12-78) 03/28/17 07:15 Alkaline Phosphatase 113 U/L (45-117) 03/28/17 07:15 Total Protein 6.6 g/dl (6.4-8.2) 03/28/17 07:15 Albumin 3.6 g/dl (3.4-5.0) 03/28/17 07:15 Urine Color Yellow 03/18/17 21:20 Urine Appearance Slcloudy 03/18/17 21:20 Urine pH 6.0 (5.0-8.0) 03/18/17 21:20 Ur Specific [place] 1.017 (1.001-1.035) 03/18/17 21:20 Urine Protein Negative (NEGATIVE) 03/18/17 21:20 Urine Glucose (UA) Negative (NEGATIVE) 03/18/17 21:20 Urine Ketones Negative (NEGATIVE) 03/18/17 21:20 Urine Blood 2+ (NEGATIVE) H 03/18/17 21:20 Urine Nitrite Negative (NEGATIVE) 03/18/17 21:20 Urine Bilirubin Negative (NEGATIVE) 03/18/17 21:20 Urine Urobilinogen Negative mg/dL (0.2-1.0) 03/18/17 21:20 Ur Leukocyte Esterase Negative (NEGATIVE) 03/18/17 21:20 Urine WBC (Auto) None /hpf (3-5) 03/18/17 21:20 Urine RBC (Auto) 4 /hpf (0-3) 03/18/17 21:20 Amorphous Urates Moderate /hpf (NONE SEEN) 03/18/17 21:20 RPR Titer Nonreactive (NONREACTIVE) 03/19/17 06:00 04/10/17 17:47 Labs noted Assessment: 04/10/17 17:51 Suboxone dosage adjusted to 12mg to improve symptoms Plan: Suboxone dosage adjustment discussed with Dr. Payton. Suboxone increase to 12mg effective 04/11/17. Patient to follow up with out patient Suboxone program Continue to monitor
[2017-04-10] MEDS: LURASIDONE HCL 20 MG TABLET PO SCH (21:36)
[2017-04-10] MEDS: THIAMINE HCL 100 MG TABLET (FP) PO SCH (21:36)
[2017-04-11] MEDS: PRENATAL VITAMINS W/ FOLIC ACID TABLET (FP) PO SCH (10:32)
[2017-04-11] MEDS: LORATADINE 10 MG TABLET PO SCH (10:32)
[2017-04-11] MEDS: RANITIDINE HCL 150 MG TABLET (FP) PO SCH ×2 (10:32→21:46)
[2017-04-11] MEDS: AMMONIUM LACTATE 12% LOTION 225 GM BOTTLE TP PRN (10:33)
[2017-04-11] MEDS: BUPRENORPHINE/NALOXONE 8 MG/2 MG FILM PACKET SL SCH (10:33)
[2017-04-11] MEDS: SERTRALINE HCL 50 MG TABLET (FP) PO SCH (10:33)
[2017-04-11] MEDS: TOLNAFTATE 1% CREAM 15 GM TUBE TP SCH ×2 (10:34→21:47)
[2017-04-11] MEDS: FLUTICASONE PROP 0.05% 16 GM NASAL SPRAY NS SCH (10:35)
[2017-04-11] MEDS ORDERED: PT OWN MED DRAWER 7, Y5N ONE (19:43)
[2017-04-11] MEDS: LURASIDONE HCL 20 MG TABLET PO SCH (21:45)
[2017-04-11] MEDS: THIAMINE HCL 100 MG TABLET (FP) PO SCH (21:45)
[2017-04-12] MEDS ORDERED: PT OWN MED DRAWER 7, Y5N ONE ×2 (08:55→21:36)
[2017-04-12] MEDS: BUPRENORPHINE HCL/NALOXONE 12 MG-3 MG SL FILM PACKET SL SCH (10:27)
[2017-04-12] MEDS: RANITIDINE HCL 150 MG TABLET (FP) PO SCH ×2 (10:27→21:34)
[2017-04-12] MEDS: FLUTICASONE PROP 0.05% 16 GM NASAL SPRAY NS SCH (10:27)
[2017-04-12] MEDS: PRENATAL VITAMINS W/ FOLIC ACID TABLET (FP) PO SCH (10:27)
[2017-04-12] MEDS: SERTRALINE HCL 50 MG TABLET (FP) PO SCH (10:28)
[2017-04-12] MEDS: LORATADINE 10 MG TABLET PO SCH (10:28)
[2017-04-12] MEDS: TOLNAFTATE 1% CREAM 15 GM TUBE TP SCH ×2 (10:29→21:34)
[2017-04-12] MEDS: THIAMINE HCL 100 MG TABLET (FP) PO SCH (21:34)
[2017-04-12] MEDS: LURASIDONE HCL 20 MG TABLET PO SCH (21:36)
[2017-04-13] MEDS: PRENATAL VITAMINS W/ FOLIC ACID TABLET (FP) PO SCH (10:33)
[2017-04-13] MEDS: BUPRENORPHINE HCL/NALOXONE 12 MG-3 MG SL FILM PACKET SL SCH (10:33)
[2017-04-13] MEDS: RANITIDINE HCL 150 MG TABLET (FP) PO SCH ×2 (10:34→21:46)
[2017-04-13] MEDS: SERTRALINE HCL 50 MG TABLET (FP) PO SCH (10:34)
[2017-04-13] MEDS: TOLNAFTATE 1% CREAM 15 GM TUBE TP SCH ×2 (10:34→21:46)
[2017-04-13] MEDS: LORATADINE 10 MG TABLET PO SCH (10:34)
[2017-04-13] MEDS: FLUTICASONE PROP 0.05% 16 GM NASAL SPRAY NS SCH (10:34)
[2017-04-13] MEDS: THIAMINE HCL 100 MG TABLET (FP) PO SCH (21:45)
[2017-04-13] MEDS: LURASIDONE HCL 20 MG TABLET PO SCH (21:45)
[2017-04-14] MEDS ORDERED: PT OWN MED DRAWER 7, Y5N ONE (09:01)
[2017-04-14] MEDS: SERTRALINE HCL 50 MG TABLET (FP) PO SCH (10:23)
[2017-04-14] MEDS: LORATADINE 10 MG TABLET PO SCH (10:23)
[2017-04-14] MEDS: PRENATAL VITAMINS W/ FOLIC ACID TABLET (FP) PO SCH (10:23)
[2017-04-14] MEDS: BUPRENORPHINE HCL/NALOXONE 12 MG-3 MG SL FILM PACKET SL SCH (10:24)
[2017-04-14] MEDS: FLUTICASONE PROP 0.05% 16 GM NASAL SPRAY NS SCH (10:24)
[2017-04-14] MEDS: TOLNAFTATE 1% CREAM 15 GM TUBE TP SCH ×2 (10:24→21:45)
[2017-04-14] MEDS: RANITIDINE HCL 150 MG TABLET (FP) PO SCH ×2 (10:24→21:45)
[2017-04-14] MEDS: LURASIDONE HCL 20 MG TABLET PO SCH (21:43)
[2017-04-14] MEDS: THIAMINE HCL 100 MG TABLET (FP) PO SCH (21:43)
[2017-04-14] MEDS: DOCUSATE SODIUM 100 MG CAPSULE (FP) PO SCH (21:45)
[2017-04-15] MEDS: FLUTICASONE PROP 0.05% 16 GM NASAL SPRAY NS SCH (10:05)
[2017-04-15] MEDS: AMMONIUM LACTATE 12% LOTION 225 GM BOTTLE TP PRN (10:05)
[2017-04-15] MEDS: LORATADINE 10 MG TABLET PO SCH (10:06)
[2017-04-15] MEDS: BUPRENORPHINE HCL/NALOXONE 12 MG-3 MG SL FILM PACKET SL SCH (10:06)
[2017-04-15] MEDS: RANITIDINE HCL 150 MG TABLET (FP) PO SCH ×2 (10:06→21:25)
[2017-04-15] MEDS: PRENATAL VITAMINS W/ FOLIC ACID TABLET (FP) PO SCH (10:06)
[2017-04-15] MEDS: TOLNAFTATE 1% CREAM 15 GM TUBE TP SCH ×2 (10:07→21:25)
[2017-04-15] MEDS: SERTRALINE HCL 50 MG TABLET (FP) PO SCH (10:07)
[2017-04-15] MEDS: THIAMINE HCL 100 MG TABLET (FP) PO SCH (21:24)
[2017-04-15] MEDS: LURASIDONE HCL 20 MG TABLET PO SCH (21:25)
[2017-04-15] MEDS: DOCUSATE SODIUM 100 MG CAPSULE (FP) PO SCH (21:25)
[2017-04-16] MEDS: LORATADINE 10 MG TABLET PO SCH (10:32)
[2017-04-16] MEDS: PRENATAL VITAMINS W/ FOLIC ACID TABLET (FP) PO SCH (10:32)
[2017-04-16] MEDS: TOLNAFTATE 1% CREAM 15 GM TUBE TP SCH ×2 (10:32→21:36)
[2017-04-16] MEDS: FLUTICASONE PROP 0.05% 16 GM NASAL SPRAY NS SCH (10:32)
[2017-04-16] MEDS: RANITIDINE HCL 150 MG TABLET (FP) PO SCH ×2 (10:32→21:36)
[2017-04-16] MEDS: BUPRENORPHINE HCL/NALOXONE 12 MG-3 MG SL FILM PACKET SL SCH (10:32)
[2017-04-16] MEDS: SERTRALINE HCL 50 MG TABLET (FP) PO SCH (10:32)
[2017-04-16] MEDS: LURASIDONE HCL 20 MG TABLET PO SCH (21:35)
[2017-04-16] MEDS: DOCUSATE SODIUM 100 MG CAPSULE (FP) PO SCH (21:36)
[2017-04-16] MEDS: THIAMINE HCL 100 MG TABLET (FP) PO SCH (21:36)
[2017-04-17] MEDS ORDERED: PT OWN MED DRAWER 7, Y5N ONE ×2 (08:47→21:43)
[2017-04-17] MEDS: LORATADINE 10 MG TABLET PO SCH (10:14)
[2017-04-17] MEDS: TOLNAFTATE 1% CREAM 15 GM TUBE TP SCH ×2 (10:14→21:42)
[2017-04-17] MEDS: FLUTICASONE PROP 0.05% 16 GM NASAL SPRAY NS SCH (10:14)
[2017-04-17] MEDS: RANITIDINE HCL 150 MG TABLET (FP) PO SCH ×2 (10:15→21:43)
[2017-04-17] MEDS: SERTRALINE HCL 50 MG TABLET (FP) PO SCH (10:15)
[2017-04-17] MEDS: PRENATAL VITAMINS W/ FOLIC ACID TABLET (FP) PO SCH (10:16)
[2017-04-17] MEDS: BUPRENORPHINE HCL/NALOXONE 12 MG-3 MG SL FILM PACKET SL SCH (10:16)
[2017-04-17] MEDS: THIAMINE HCL 100 MG TABLET (FP) PO SCH (21:41)
[2017-04-17] MEDS: DOCUSATE SODIUM 100 MG CAPSULE (FP) PO SCH (21:42)
[2017-04-17] MEDS: LURASIDONE HCL 20 MG TABLET PO SCH (21:43)
[2017-04-18] MEDS: FLUTICASONE PROP 0.05% 16 GM NASAL SPRAY NS SCH (10:47)
[2017-04-18] MEDS: BUPRENORPHINE HCL/NALOXONE 12 MG-3 MG SL FILM PACKET SL SCH (10:47)
[2017-04-18] MEDS: PRENATAL VITAMINS W/ FOLIC ACID TABLET (FP) PO SCH (10:47)
[2017-04-18] MEDS: SERTRALINE HCL 50 MG TABLET (FP) PO SCH (10:47)
[2017-04-18] MEDS: TOLNAFTATE 1% CREAM 15 GM TUBE TP SCH ×2 (10:47→21:51)
[2017-04-18] MEDS: RANITIDINE HCL 150 MG TABLET (FP) PO SCH ×2 (10:47→21:51)
[2017-04-18] MEDS: LORATADINE 10 MG TABLET PO SCH (10:47)
[2017-04-18] MEDS: SUMAtriptan SUCCINATE 25 MG TABLET PO PRN (10:49)
[2017-04-18] MEDS ORDERED: PT OWN MED DRAWER 7, Y5N ONE (11:50)
[2017-04-18] MEDS: hydrOXYzine PAMOATE 50 MG CAPSULE (FP) PO PRN (15:51)
[2017-04-18] MEDS: THIAMINE HCL 100 MG TABLET (FP) PO SCH (21:49)
[2017-04-18] MEDS: LURASIDONE HCL 20 MG TABLET PO SCH (21:49)
[2017-04-18] MEDS: DOCUSATE SODIUM 100 MG CAPSULE (FP) PO SCH (21:49)
[2017-04-19] MEDS ORDERED: PT OWN MED DRAWER 7, Y5N ONE (08:55)
[2017-04-19] MEDS: BUPRENORPHINE HCL/NALOXONE 12 MG-3 MG SL FILM PACKET SL SCH (10:01)
[2017-04-19] MEDS: SERTRALINE HCL 50 MG TABLET (FP) PO SCH (10:01)
[2017-04-19] MEDS: FLUTICASONE PROP 0.05% 16 GM NASAL SPRAY NS SCH (10:01)
[2017-04-19] MEDS: PRENATAL VITAMINS W/ FOLIC ACID TABLET (FP) PO SCH (10:01)
[2017-04-19] MEDS: LORATADINE 10 MG TABLET PO SCH (10:02)
[2017-04-19] MEDS: TOLNAFTATE 1% CREAM 15 GM TUBE TP SCH ×2 (10:02→21:41)
[2017-04-19] MEDS: RANITIDINE HCL 150 MG TABLET (FP) PO SCH ×2 (10:02→21:41)
[2017-04-19] MEDS: DOCUSATE SODIUM 100 MG CAPSULE (FP) PO SCH (21:40)
[2017-04-19] MEDS: LURASIDONE HCL 20 MG TABLET PO SCH (21:40)
[2017-04-19] MEDS: THIAMINE HCL 100 MG TABLET (FP) PO SCH (21:40)
[2017-04-20 07:32] VITALS: TEMP 98.1
[2017-04-20] MEDS ORDERED: PT OWN MED DRAWER 7, Y5N ONE (08:35)
[2017-04-20] MEDS: FLUTICASONE PROP 0.05% 16 GM NASAL SPRAY NS SCH (09:54)
[2017-04-20] MEDS: SERTRALINE HCL 50 MG TABLET (FP) PO SCH (09:55)
[2017-04-20] MEDS: PRENATAL VITAMINS W/ FOLIC ACID TABLET (FP) PO SCH (09:55)
[2017-04-20] MEDS: LORATADINE 10 MG TABLET PO SCH (09:55)
[2017-04-20] MEDS: BUPRENORPHINE HCL/NALOXONE 12 MG-3 MG SL FILM PACKET SL SCH (09:55)
[2017-04-20] MEDS: RANITIDINE HCL 150 MG TABLET (FP) PO SCH ×2 (09:56→21:11)
[2017-04-20] MEDS: TOLNAFTATE 1% CREAM 15 GM TUBE TP SCH ×2 (09:56→21:13)
[2017-04-20] MEDS: LURASIDONE HCL 20 MG TABLET PO SCH (21:11)
[2017-04-20] MEDS: THIAMINE HCL 100 MG TABLET (FP) PO SCH (21:11)
[2017-04-20] MEDS: DOCUSATE SODIUM 100 MG CAPSULE (FP) PO SCH (21:11)
[2017-04-21 07:32] VITALS: BP 118/88; PULSE 88
--- NOTE | 2017-04-21 08:52 | PN ---
Psychiatric Progress Note Vital Signs: Vital Signs Period Temp Pulse Resp BP Sys/العراقي Pulse Ox Last 24 Hr 98.1 F 88 16-18 118/88 Date of Session: 04/21/17 Chief Complaint:: Discharge visit Current Medications: Active Medications Generic Name Dose Route Start Last Admin Trade Name Freq PRN Reason Stop Dose Admin Acetaminophen 650 mg 03/23/17 09:57 Tylenol - PO Q4H PRN FEVER Al Hydroxide/Mg Hydroxide 30 ml 03/23/17 09:57 Mylanta Oral Suspension - PO Q6H PRN DYSPEPSIA Albuterol Sulfate 2 puff 03/18/17 18:14 04/04/17 13:21 Ventolin Hfa Inhaler - IH 2 inh QID PRN Administration ASTHMA Albuterol/Ipratropium 1 amp 04/08/17 07:25 Duoneb - NEB Q4H PRN SHORTNESS OF BREATH Buprenorphine/Naloxone 1 each 04/12/17 10:00 04/20/17 09:55 Suboxone 12 Mg-3 Mg Sl Film SL 1 each DAILY ALEXIA Administration Colloidal Oatmeal 1 applic 04/07/17 14:22 Aveeno Soap - TP DAILY PRN HYGEINE Docusate Sodium 300 mg 04/14/17 22:00 04/20/17 21:11 Colace - PO 300 mg HS ALEXIA Administration Eucalyptus/Menthol/Phenol/Sorbitol 1 each 03/23/17 09:57 Cepastat Lozenge - MM Q4H PRN SORE THROAT Fluticasone Propionate 1 spray 03/25/17 13:47 04/20/17 09:54 Flonase - NS 1 spray DAILY ALEXIA Administration Guaifenesin 10 ml 03/23/17 09:57 03/28/17 20:44 Robitussin Dm - PO 10 ml Q6H PRN Administration COUGH Hydroxyzine Pamoate 50 mg 03/22/17 17:59 04/18/17 15:51 Vistaril - PO 50 mg Q6H PRN Administration FOR ITCHING Lactic Acid 1 applic 04/07/17 14:23 04/15/17 10:05 Lac-Hydrin 12 TP 1 applic BID PRN Administration DRY SKIN Loperamide HCl 4 mg 03/23/17 09:57 Imodium - PO Q6H PRN DIARRHEA Loratadine 10 mg 03/25/17 13:48 04/20/17 09:55 Claritin - PO 10 mg DAILY ALEXIA Administration Lurasidone HCl 60 mg 03/19/17 22:00 04/20/17 21:11 Latuda - PO 60 mg HS ALEXIA Administration Magnesium Citrate 300 ml 03/23/17 09:57 04/15/17 17:45 Citroma - PO 300 ml Q48H PRN Administration CONSTIPATION Magnesium Hydroxide 30 ml 03/23/17 09:57 03/28/17 12:22 Milk Of Magnesia - PO 30 ml DAILY PRN Administration CONSTIPATION Nicotine 14 mg 03/23/17 09:57 Nicoderm Patch - TD DAILY PRN WITHDRAWAL(CONT SUBST) Nicotine Polacrilex 2 mg 03/23/17 09:57 04/09/17 13:33 Nicorette Gum - BUC 2 mg Q2H PRN Administration NICOTINE REPLACEMENT RX Ondansetron HCl 8 mg 04/09/17 14:47 Zofran Odt - SL Q6H PRN NAUSEA AND/OR VOMITING Multivit/Folic Acid/Iron 1 tab 03/23/17 10:00 04/20/17 09:55 Vitamins (Sjr) - PO 1 tab DAILY ALEXIA Administration Ranitidine HCl 150 mg 04/03/17 10:00 04/20/17 21:11 Zantac - PO 150 mg BID ALEXIA Administration Sertraline HCl 200 mg 03/29/17 10:00 04/20/17 09:55 Zoloft - PO 200 mg DAILY ALEXIA Administration Sumatriptan Succinate 25 mg 04/08/17 15:01 04/18/17 10:49 Imitrex - PO 25 mg DAILY PRN Administration HEADACHE Thiamine HCl 100 mg 03/23/17 22:00 04/20/17 21:11 Vitamin B1 - PO 100 mg HS ALEXIA Administration Tolnaftate 1 applic 04/07/17 22:00 04/20/17 21:13 Tinactin 1% Cream - TP Not Given BID ALEXIA Current Side Effect: No Lab tests ordered: No Lab tests reviewed: Yes Provider note:: [facility] Total face to face time:: 30 Psychiatric Treatment Plan - Problem List (1) Asthma Current Visit: Yes Qualifiers: Asthma severity: mild Asthma persistence: intermittent Asthma complication type: with status asthmaticus Qualified Code(s): J45.22 - Mild intermittent asthma with status asthmaticus (2) GERD (gastroesophageal reflux disease) Current Visit: Yes Qualifiers: Esophagitis presence: without esophagitis Qualified Code(s): K21.9 - Gastro -esophageal reflux disease without esophagitis (3) Bipolar II disorder Current Visit: Yes (4) Alcohol dependence Current Visit: Yes (5) Opioid dependence Current Visit: Yes (6) PTSD (post-traumatic stress disorder) Current Visit: Yes (7) Borderline personality disorder Current Visit: Yes
[2017-04-21] MEDS: FLUTICASONE PROP 0.05% 16 GM NASAL SPRAY NS SCH (09:41)
[2017-04-21] MEDS: LORATADINE 10 MG TABLET PO SCH (09:41)
[2017-04-21] MEDS: SERTRALINE HCL 50 MG TABLET (FP) PO SCH (09:41)
[2017-04-21] MEDS: PRENATAL VITAMINS W/ FOLIC ACID TABLET (FP) PO SCH (09:41)
[2017-04-21] MEDS: BUPRENORPHINE HCL/NALOXONE 12 MG-3 MG SL FILM PACKET SL SCH (09:41)
[2017-04-21] MEDS: TOLNAFTATE 1% CREAM 15 GM TUBE TP SCH (09:42)
[2017-04-21] MEDS: RANITIDINE HCL 150 MG TABLET (FP) PO SCH (09:43)
[2017-04-22] MEDS ORDERED: BUPRENORPHINE/NALOXONE 8 MG/2 MG FILM PACKET SL SCH (10:00)
[2017-04-22] MEDS ORDERED: BUPRENORPHINE/NALOXONE 2 MG/0.5 MG FILM PACKET SL SCH (10:00)
== END 2017-04-21 10:05 | disposition home or self-care (01) | DRG 895 ==
LOC: YASAS 13:53 → Y6N 17:45 → Y3E 03-23 12:58
PROVIDERS: ADMIT Internal Medicine; ATTEND Psychiatry & Neurology Psychiatry
PROC: HZ2ZZZZ Detoxification Services for Substance Abuse Treatment (ICD-10-PCS; principal; 2017-03-19)
PROC: HZ42ZZZ Group Counseling for Substance Abuse Treatment, Cognitive-Behavioral (ICD-10-PCS; 2017-03-23)
DX: F11.23 Opioid dependence with withdrawal (principal); F31.81 Bipolar II disorder; J45.22 Mild intermittent asthma with status asthmaticus; F10.230 Alcohol dependence with withdrawal, uncomplicated; F60.3 Borderline personality disorder; F43.10 Post-traumatic stress disorder, unspecified; R00.0 Tachycardia, unspecified; E87.6 Hypokalemia; K21.9 Gastro-esophageal reflux disease without esophagitis; B35.3 Tinea pedis; E66.9 Obesity, unspecified; Z68.33 Body mass index [BMI] 33.0-33.9, adult; Z91.040 Latex allergy status; Z87.891 Personal history of nicotine dependence; Z91.5 Personal history of self-harm; W22.8XXA Striking against or struck by other objects, initial encounter; Y93.9 Activity, unspecified; Y92.238 Other place in hospital as the place of occurrence of the external cause
CPT/HCPCS: 36415; 71046-TC-FY; 80053; 81003; 81015; 82962; 85025; 85027; 86593; 93005; 93010; 94640; J0735

== ENCOUNTER 2020-11-22 17:10 | Inpatient (IN) | payer BC, OTHER ==
[2020-11-22 19:01] VITALS: BMI 36.8
[2020-11-22] MEDS ORDERED: NICOTINE POLACRILEX 4 MG GUM BUC PRN (22:10)
[2020-11-22] MEDS ORDERED: MENTHOL/PHENOL 1 EACH UD MM PRN (22:10)
[2020-11-22] MEDS ORDERED: MAG HYDROX/AL HYDROX/SIMETH 30 ML UNIT-DOSE CUP PO PRN (22:10)
[2020-11-22] MEDS ORDERED: MAGNESIUM CITRATE 300 ML BOTTLE PO PRN (22:10)
[2020-11-22] MEDS ORDERED: ACETAMINOPHEN 325 MG TABLET (FP) PO PRN ×2 (22:10)
[2020-11-22] MEDS ORDERED: BISMUTH SUBSALICYLATE 524 MG/30 ML PO PRN (22:10)
[2020-11-22] MEDS ORDERED: MAGNESIUM HYDROX 2400MG/30ML ORAL SUSPENSION 30 ML CUP PO PRN (22:10)
[2020-11-22] MEDS ORDERED: cloNIDine HCL 0.1 MG TABLET PO PRN (22:15)
[2020-11-22] MEDS ORDERED: methaDONE HCL 10 MG TABLET (FOR DETOX USE ONLY) PO ONE (22:15)
[2020-11-23] MEDS ORDERED: diazePAM 5 MG TABLET ONE ×2 (00:47→06:37)
[2020-11-23] MEDS ORDERED: methaDONE HCL 10 MG TABLET (FOR DETOX USE ONLY) ONE ×2 (00:47→10:11)
[2020-11-23] MEDS: diazePAM 5 MG TABLET PO SCH ×5 (00:54→22:03)
[2020-11-23] MEDS ORDERED: ALBUTEROL SO4 HFA INHALER IH PRN (08:01)
[2020-11-23 08:27] LABS: HEMATOCRIT 39.5 % (32.4-45.2); HEMOGLOBIN 13.5 GM/dL (10.7-15.3); MCH 31.3 pg (25.7-33.7); MCHC 34.2 g/dl (32.0-36.0); MEAN CELL VOLUME 91.5 fl (80-96); MEAN PLT VOLUME 7.6 fl (7.5-11.1); PLATELET COUNT 311 10^3/uL (134-434); RBC 4.32 M/mm3 (3.60-5.2); RDW 14.7 % (11.6-15.6); WHITE BLOOD COUNT 10.7 K/mm3 (4.0-10.0)
[2020-11-23 08:49] LABS: ALBUMIN 3.9 g/dl (3.4-5.0); BLOOD UREA NITROGEN 13.2 mg/dL (7-18); CALCIUM 9.3 mg/dL (8.5-10.1)
[2020-11-23 08:52] LABS: BILIRUBIN,TOTAL 0.6 mg/dL (0.2-1)
[2020-11-23 08:56] LABS: TOT PROT 6.9 g/dl (6.4-8.2)
[2020-11-23] MEDS: PRENATAL VITAMINS W/ FOLIC ACID TABLET (FP) PO SCH (10:10)
[2020-11-23] MEDS: NICOTINE 21 MG/24 HOURS TOPICAL PATCH TD SCH (10:11)
[2020-11-23] MEDS: TOLNAFTATE 1% CREAM 15 GM TUBE TP SCH ×2 (10:12→22:03)
[2020-11-23] MEDS: IBUPROFEN 400 MG TABLET (FP) PO PRN (10:12)
[2020-11-23] MEDS: FAMOTIDINE 20 MG TABLET PO SCH ×2 (10:13→22:02)
[2020-11-23] MEDS: METHOCARBAMOL 500 MG TABLET PO PRN (10:14)
[2020-11-23] MEDS: diazePAM 5 MG TABLET PO PRN (12:28)
[2020-11-23] MEDS: NICOTINE 10 MG CARTRIDGE (INHALER) IH PRN ×2 (14:44→17:32)
[2020-11-23] MEDS: THIAMINE HCL 100 MG TABLET (FP) PO SCH (22:02)
[2020-11-23] MEDS: MELATONIN 5 MG TABLETS PO SCH (22:02)
[2020-11-24] MEDS: diazePAM 5 MG TABLET PO SCH ×3 (06:03→21:46)
[2020-11-24] MEDS: IBUPROFEN 400 MG TABLET (FP) PO PRN (06:06)
[2020-11-24] MEDS ORDERED: methaDONE HCL 10 MG TABLET (FOR DETOX USE ONLY) PO ONE (10:00)
[2020-11-24] MEDS: FAMOTIDINE 20 MG TABLET PO SCH ×2 (10:27→21:46)
[2020-11-24] MEDS: METHOCARBAMOL 500 MG TABLET PO PRN ×2 (10:27→18:49)
[2020-11-24] MEDS: PRENATAL VITAMINS W/ FOLIC ACID TABLET (FP) PO SCH (10:27)
[2020-11-24] MEDS: NICOTINE 21 MG/24 HOURS TOPICAL PATCH TD SCH (10:29)
[2020-11-24] MEDS: ONDANSETRON *ODT* 4 MG TABLET SL PRN ×2 (11:16→19:36)
[2020-11-24] MEDS: TOLNAFTATE 1% CREAM 15 GM TUBE TP SCH ×2 (11:28→21:46)
[2020-11-24] MEDS: diazePAM 5 MG TABLET PO PRN (15:28)
[2020-11-24] MEDS: NICOTINE 10 MG CARTRIDGE (INHALER) IH PRN (18:48)
[2020-11-24] MEDS: MELATONIN 5 MG TABLETS PO SCH (21:46)
[2020-11-24] MEDS: THIAMINE HCL 100 MG TABLET (FP) PO SCH (21:46)
[2020-11-25] MEDS: diazePAM 5 MG TABLET PO SCH ×2 (06:51→23:03)
[2020-11-25] MEDS ORDERED: methaDONE HCL 10 MG TABLET (FOR DETOX USE ONLY) ONE (09:06)
[2020-11-25 09:09] VITALS: TEMP 97.3
[2020-11-25] MEDS: PRENATAL VITAMINS W/ FOLIC ACID TABLET (FP) PO SCH (10:36)
[2020-11-25] MEDS: FAMOTIDINE 20 MG TABLET PO SCH ×3 (10:36→23:04)
[2020-11-25] MEDS: NICOTINE 21 MG/24 HOURS TOPICAL PATCH TD SCH (10:38)
[2020-11-25] MEDS: TOLNAFTATE 1% CREAM 15 GM TUBE TP SCH ×3 (10:38→23:04)
[2020-11-25] MEDS ORDERED: NALOXONE (NARCAN) HCL 4 MG/0.1 ML SPRAY NS ONE ×2 (13:17→13:50)
[2020-11-25 13:51] VITALS: BP 105/88; PULSE 136
[2020-11-25] MEDS: MELATONIN 5 MG TABLETS PO SCH (23:03)
[2020-11-25] MEDS: THIAMINE HCL 100 MG TABLET (FP) PO SCH (23:04)
[2020-11-26] MEDS ORDERED: CLINDAMYCIN 600MG PREMIX IVPB 600 MG/50 ML BAG IVPB SCH (03:00)
[2020-11-26] MEDS ORDERED: diazePAM 5 MG TABLET PO ONE (06:00)
[2020-11-26] MEDS ORDERED: methaDONE HCL 10 MG TABLET (FOR DETOX USE ONLY) PO ONE (10:00)
== END 2020-11-26 05:00 | disposition short-term general hospital (02) | DRG 897 ==
LOC: YASAS 17:10 → Y6N 11-23 09:36
PROVIDERS: ADMIT Allergy & Immunology; ATTEND Allergy & Immunology
PROC: HZ2ZZZZ Detoxification Services for Substance Abuse Treatment (ICD-10-PCS; principal; 2020-11-23)
DX: F11.23 Opioid dependence with withdrawal (principal); F13.20 Sedative, hypnotic or anxiolytic dependence, uncomplicated; F19.282 Other psychoactive substance dependence with psychoactive substance-induced sleep disorder; F10.230 Alcohol dependence with withdrawal, uncomplicated; F17.210 Nicotine dependence, cigarettes, uncomplicated; F19.24 Other psychoactive substance dependence with psychoactive substance-induced mood disorder; F31.9 Bipolar disorder, unspecified; F41.9 Anxiety disorder, unspecified; F60.3 Borderline personality disorder; F43.10 Post-traumatic stress disorder, unspecified; J42 Unspecified chronic bronchitis; J45.20 Mild intermittent asthma, uncomplicated; G58.9 Mononeuropathy, unspecified; G43.909 Migraine, unspecified, not intractable, without status migrainosus; M17.0 Bilateral primary osteoarthritis of knee; M16.0 Bilateral primary osteoarthritis of hip; K21.9 Gastro-esophageal reflux disease without esophagitis; M54.5 Low back pain; G89.29 Other chronic pain; Z62.810 Personal history of physical and sexual abuse in childhood; Z86.69 Personal history of other diseases of the nervous system and sense organs; Z91.410 Personal history of adult physical and sexual abuse; Z88.0 Allergy status to penicillin; Z91.040 Latex allergy status
CPT/HCPCS: 36415; 80053; 81025; 82962; 85027; 86780; 93005; 93010; C9803; Q0162; U0003; U0005

== ENCOUNTER 2020-11-25 13:28 | Inpatient (IN) | payer BC, OTHER ==
[2020-11-25 18:00] LABS: BASO % 0.5 % (0-2.0); EOS % 0.1 % (0-4.5); HEMATOCRIT 36.3 % (32.4-45.2); HEMOGLOBIN 12.6 GM/dL (10.7-15.3); LYMPH % 11.9 % (8-40); MCH 31.4 pg (25.7-33.7); MCHC 34.6 g/dl (32.0-36.0); MEAN CELL VOLUME 90.8 fl (80-96); MEAN PLT VOLUME 7.4 fl (7.5-11.1); MONO % 8.4 % (3.8-10.2); NEUT % 79.1 % (42.8-82.8); PLATELET COUNT 259 10^3/uL (134-434); RDW 14.5 % (11.6-15.6); WHITE BLOOD COUNT 12.5 K/mm3 (4.0-10.0)
[2020-11-25 18:02] LABS: VENOUS BASE EXCESS 5.8 mmol/L (-2-2); VENOUS O2 SATURATION 80.8 % (70-80); VENOUS PCO2 61.1 mmHg (38-52); VENOUS PH 7.352 (7.310-7.410)
[2020-11-25 18:19] LABS: CHLORIDE 99 mmol/L (98-107); SODIUM 137 mmol/L (136-145)
[2020-11-25] MEDS ORDERED: LACTATED RINGERS SOLUTION 1000 ML INFUS.BAG IV ONE (18:20)
[2020-11-25 18:21] LABS: CALCIUM 8.9 mg/dL (8.5-10.1)
[2020-11-25 18:22] LABS: ALBUMIN 3.6 g/dl (3.4-5.0); ANION GAP 6 MMOL/L (8-16); BLOOD UREA NITROGEN 5.5 mg/dL (7-18); CO2 31 mmol/L (21-32); GLUCOSE,RANDOM 97 mg/dL (74-106)
[2020-11-25 18:25] LABS: CREATININE 0.7 mg/dL (0.55-1.3); SGOT/AST 29 U/L (15-37); SGPT/ALT 46 U/L (13-61)
[2020-11-25 18:26] LABS: BILIRUBIN,TOTAL 0.6 mg/dL (0.2-1); TOT PROT 6.7 g/dl (6.4-8.2)
[2020-11-25 18:27] LABS: ALK PHOS 141 U/L (45-117)
[2020-11-25] MEDS ORDERED: LORazepam 2 MG/ML SDV VIAL IVPUSH ONE (18:43)
[2020-11-25] MEDS ORDERED: LORazepam 2 MG/ML SDV VIAL ONE (19:14)
[2020-11-25 23:29] LABS: ARTERIAL BLD GAS O2 SATURATION 96.7 % (95-98); ARTERIAL BLOOD GAS BASE EXCESS 7.4 mmol/L (-2-2); ARTERIAL BLOOD GAS PO2 93.2 mmHg (80-100); ARTERIAL BLOOD GAS pH 7.366 (7.350-7.450)
[2020-11-25 23:30] LABS: ALLENS TEST POSITIVE
[2020-11-26 05:06] VITALS: BMI 39.4
[2020-11-26] MEDS: INSULIN SLIDING SCALE (NOVOLOG) 1 VIAL SQ SCH ×4 (06:01→22:05)
[2020-11-26] MEDS ORDERED: PNEUMOC 13-VAL CONJ-DIP CRM/PF 0.5 ML DISP.SYRIN IM ONE (08:00)
[2020-11-26] MEDS: PANTOPRAZOLE SODIUM 40 MG VIAL IVPUSH SCH (10:27)
[2020-11-26] MEDS: ENOXAPARIN NA (PORCINE) 40 MG/0.4 ML DISP.SYRIN SQ SCH (10:27)
[2020-11-26] MEDS ORDERED: PNEUMOCOCCAL 23 VACCINE 0.5 ML VIAL IM ONE (12:45)
[2020-11-26] MEDS ORDERED: ONDANSETRON 4 MG/2 ML VIAL IVPUSH PRN (12:47)
[2020-11-26 15:52] LABS: BASO % 0.7 % (0-2.0); EOS % 1.9 % (0-4.5); HEMATOCRIT 33.1 % (32.4-45.2); HEMOGLOBIN 11.4 GM/dL (10.7-15.3); LYMPH % 24.6 % (8-40); MCH 31.3 pg (25.7-33.7); MCHC 34.5 g/dl (32.0-36.0); MEAN CELL VOLUME 90.6 fl (80-96); MEAN PLT VOLUME 7.2 fl (7.5-11.1); MONO % 9.1 % (3.8-10.2); NEUT % 63.7 % (42.8-82.8); PLATELET COUNT 224 10^3/uL (134-434); RBC 3.66 M/mm3 (3.60-5.2); RDW 14.9 % (11.6-15.6); WHITE BLOOD COUNT 9.1 K/mm3 (4.0-10.0)
[2020-11-26 16:22] LABS: CALCIUM 8.7 mg/dL (8.5-10.1)
[2020-11-26 16:23] LABS: BLOOD UREA NITROGEN 5.3 mg/dL (7-18); MAGNESIUM 2.2 mg/dL (1.8-2.4)
[2020-11-26 16:26] LABS: CREATININE 0.9 mg/dL (0.55-1.3)
[2020-11-27] MEDS ORDERED: ACETAMINOPHEN 325 MG TABLET (FP) PO ONE (03:09)
[2020-11-27] MEDS: INSULIN SLIDING SCALE (NOVOLOG) 1 VIAL SQ SCH ×2 (05:59→12:24)
[2020-11-27 07:21] LABS: BASO % 0.5 % (0-2.0); EOS % 3.1 % (0-4.5); HEMATOCRIT 34.7 % (32.4-45.2); HEMOGLOBIN 11.9 GM/dL (10.7-15.3); LYMPH % 24.7 % (8-40); MCH 31.2 pg (25.7-33.7); MCHC 34.2 g/dl (32.0-36.0); MEAN CELL VOLUME 91.2 fl (80-96); MEAN PLT VOLUME 7.1 fl (7.5-11.1); MONO % 7.3 % (3.8-10.2); NEUT % 64.4 % (42.8-82.8); PLATELET COUNT 212 10^3/uL (134-434); RBC 3.81 M/mm3 (3.60-5.2); RDW 14.8 % (11.6-15.6); WHITE BLOOD COUNT 7.8 K/mm3 (4.0-10.0)
[2020-11-27 07:46] LABS: BLOOD UREA NITROGEN 6.8 mg/dL (7-18); CALCIUM 8.2 mg/dL (8.5-10.1)
[2020-11-27 07:47] LABS: ALBUMIN 3.1 g/dl (3.4-5.0); MAGNESIUM 2.2 mg/dL (1.8-2.4)
[2020-11-27 07:50] LABS: CREATININE 0.6 mg/dL (0.55-1.3); PHOSPHOROUS 3.8 mg/dL (2.5-4.9)
[2020-11-27 07:51] LABS: BILIRUBIN,TOTAL 0.5 mg/dL (0.2-1); TOT PROT 5.8 g/dl (6.4-8.2)
[2020-11-27] MEDS: NICOTINE 14 MG/24 HOURS TOPICAL PATCH TD SCH (10:05)
[2020-11-27] MEDS: PANTOPRAZOLE SODIUM 40 MG VIAL IVPUSH SCH (10:05)
[2020-11-27] MEDS: ENOXAPARIN NA (PORCINE) 40 MG/0.4 ML DISP.SYRIN SQ SCH (10:05)
[2020-11-27 15:46] LABS: COCAINE, UR NEGATIVE (NEGATIVE); METHADONE, UR NEGATIVE (NEGATIVE); OPIATES, URI NEGATIVE (NEGATIVE); PHENCYCLIDINE,URINE NEGATIVE (NEGATIVE); URINE BARBITURATES NEGATIVE (NEGATIVE)
[2020-11-27 15:51] LABS: URINE AMPHETAMINES NEGATIVE (NEGATIVE); URINE BENZODIAZEPINES POSITIVE (NEGATIVE)
[2020-11-28 08:09] LABS: ALBUMIN 3.3 g/dl (3.4-5.0); BLOOD UREA NITROGEN 7.8 mg/dL (7-18)
[2020-11-28 08:10] LABS: MAGNESIUM 2.3 mg/dL (1.8-2.4)
[2020-11-28 08:11] LABS: BILIRUBIN,TOTAL 0.5 mg/dL (0.2-1); TOT PROT 6.3 g/dl (6.4-8.2)
[2020-11-28 08:12] LABS: CREATININE 0.6 mg/dL (0.55-1.3); PHOSPHOROUS 3.9 mg/dL (2.5-4.9)
[2020-11-28 08:41] LABS: BASO % 0.8 % (0-2.0); EOS % 3.5 % (0-4.5); HEMATOCRIT 37.3 % (32.4-45.2); HEMOGLOBIN 12.9 GM/dL (10.7-15.3); LYMPH % 18.1 % (8-40); MCH 31.6 pg (25.7-33.7); MCHC 34.6 g/dl (32.0-36.0); MEAN CELL VOLUME 91.2 fl (80-96); MEAN PLT VOLUME 8.5 fl (7.5-11.1); MONO % 6.3 % (3.8-10.2); NEUT % 71.3 % (42.8-82.8); RBC 4.09 M/mm3 (3.60-5.2); RDW 14.5 % (11.6-15.6); WHITE BLOOD COUNT 9.3 K/mm3 (4.0-10.0)
[2020-11-28] MEDS: ENOXAPARIN NA (PORCINE) 40 MG/0.4 ML DISP.SYRIN SQ SCH (09:47)
[2020-11-28] MEDS: PANTOPRAZOLE SODIUM 40 MG VIAL IVPUSH SCH (09:47)
[2020-11-28] MEDS: NICOTINE 14 MG/24 HOURS TOPICAL PATCH TD SCH (09:47)
[2020-11-28] MEDS ORDERED: ACETAMINOPHEN 325 MG TABLET (FP) PO PRN (21:32)
[2020-11-28] MEDS ORDERED: SENNOSIDES 8.6MG TABLET (FP) PO SCH (22:00)
[2020-11-29 07:34] LABS: BASO % 0.8 % (0-2.0); EOS % 6.2 % (0-4.5); HEMATOCRIT 38.1 % (32.4-45.2); HEMOGLOBIN 13.2 GM/dL (10.7-15.3); LYMPH % 35.8 % (8-40); MCH 31.2 pg (25.7-33.7); MCHC 34.7 g/dl (32.0-36.0); MEAN CELL VOLUME 89.9 fl (80-96); MEAN PLT VOLUME 7.2 fl (7.5-11.1); MONO % 8.2 % (3.8-10.2); PLATELET COUNT 275 10^3/uL (134-434); RBC 4.24 M/mm3 (3.60-5.2); RDW 14.8 % (11.6-15.6); WHITE BLOOD COUNT 6.9 K/mm3 (4.0-10.0)
[2020-11-29 08:27] LABS: ALBUMIN 3.4 g/dl (3.4-5.0); BLOOD UREA NITROGEN 7.7 mg/dL (7-18); MAGNESIUM 2.4 mg/dL (1.8-2.4)
[2020-11-29 08:30] LABS: CREATININE 0.6 mg/dL (0.55-1.3); PHOSPHOROUS 4.3 mg/dL (2.5-4.9)
[2020-11-29 08:32] LABS: BILIRUBIN,TOTAL 0.9 mg/dL (0.2-1); TOT PROT 6.3 g/dl (6.4-8.2)
[2020-11-29] MEDS: PANTOPRAZOLE SODIUM 40 MG VIAL IVPUSH SCH (10:00)
[2020-11-29] MEDS: ENOXAPARIN NA (PORCINE) 40 MG/0.4 ML DISP.SYRIN SQ SCH (10:00)
[2020-11-29] MEDS ORDERED: FLUTICASONE/UMECLIDIN/VILANTER(100-62.5-25 TRELEGY ELLIPTA) INAHLER IH SCH (10:00)
[2020-11-29] MEDS: NICOTINE 14 MG/24 HOURS TOPICAL PATCH TD SCH (10:00)
[2020-11-29] MEDS ORDERED: MECLIZINE HCL 25 MG TABLET (FP) PO ONE (10:27)
[2020-11-29] MEDS ORDERED: MINERAL OIL ENEMA 133 ML ENEMA RC ONE (10:45)
[2020-11-29 15:46] VITALS: BP 99/62; PULSE 106; TEMP 98.2
== END 2020-11-29 16:06 | disposition home or self-care (01) | DRG 897 ==
LOC: JER 13:28 → JERBED 21:16 → OBSVTOIN 11-26 01:28 → J4W 11-26 04:36
PROVIDERS: ADMIT Internal Medicine
DX: F13.230 Sedative, hypnotic or anxiolytic dependence with withdrawal, uncomplicated (principal); T40.2X1A Poisoning by other opioids, accidental (unintentional), initial encounter; R00.0 Tachycardia, unspecified; J44.9 Chronic obstructive pulmonary disease, unspecified; K21.9 Gastro-esophageal reflux disease without esophagitis; F60.3 Borderline personality disorder; F32.9 Major depressive disorder, single episode, unspecified; G43.909 Migraine, unspecified, not intractable, without status migrainosus; M54.5 Low back pain; F43.10 Post-traumatic stress disorder, unspecified; F41.9 Anxiety disorder, unspecified; R09.02 Hypoxemia; E66.9 Obesity, unspecified; K59.00 Constipation, unspecified; F10.20 Alcohol dependence, uncomplicated; G47.33 Obstructive sleep apnea (adult) (pediatric); F10.230 Alcohol dependence with withdrawal, uncomplicated; Y92.89 Other specified places as the place of occurrence of the external cause; R42 Dizziness and giddiness; Z68.39 Body mass index [BMI] 39.0-39.9, adult
CPT/HCPCS: 36415; 36600; 70450-TC; 71045-TC-FY; 80048; 80053; 80307; 82010; 82550; 82803; 82962; 83036; 83735; 84100; 84439; 84443; 84484; 84703; 85025; 85379; 93005; 93010; 97116-GP; 97162-GP; 99285-25; G0378

== ENCOUNTER 2021-09-04 16:48 | Inpatient (IN) | payer BC, OTHER ==
[2021-09-04] MEDS ORDERED: guaiFENesin 200 MG/10 ML 10 ML UNIT-DOSE CUPS PO PRN (19:01)
[2021-09-04] MEDS ORDERED: BENZOCAINE/MENTHOL (CHLORASEPTIC ) LOZENGE MM PRN (19:01)
[2021-09-04] MEDS ORDERED: MAGNESIUM HYDROX 2400MG/30ML ORAL SUSPENSION 30 ML CUP PO PRN (19:01)
[2021-09-04] MEDS ORDERED: ACETAMINOPHEN 325 MG TABLET (FP) PO PRN ×2 (19:01)
[2021-09-04] MEDS ORDERED: MAGNESIUM CITRATE 300 ML BOTTLE PO PRN (19:01)
[2021-09-04] MEDS ORDERED: NICOTINE POLACRILEX 2 MG GUM BUC PRN (19:01)
[2021-09-04] MEDS ORDERED: P-EPHED 60MG/TRIPROLIDI 2.5MG TABLET PO PRN (19:01)
[2021-09-04] MEDS ORDERED: IBUPROFEN 600 MG TABLET (FP) PO PRN (19:01)
[2021-09-04] MEDS ORDERED: IBUPROFEN 400 MG TABLET (FP) PO PRN (19:01)
[2021-09-04] MEDS ORDERED: DICYCLOMINE HCL 10 MG CAPSULE PO PRN (19:01)
[2021-09-04] MEDS ORDERED: LOPERAMIDE HCL 2 MG CAPSULE PO PRN (19:01)
[2021-09-04] MEDS ORDERED: MAG HYDROX/AL HYDROX/SIMETH 30 ML UNIT-DOSE CUP PO PRN (19:01)
[2021-09-04] MEDS ORDERED: BISMUTH SUBSALICYLATE 524 MG/30 ML PO PRN (19:01)
[2021-09-04] MEDS ORDERED: NICOTINE 10 MG CARTRIDGE (INHALER) IH PRN (19:01)
[2021-09-04] MEDS ORDERED: ONDANSETRON *ODT* 4 MG TABLET SL PRN (19:01)
[2021-09-04] MEDS ORDERED: chlordiazePOXIDE HCL 25 MG CAPSULE PO PRN (19:03)
[2021-09-04] MEDS ORDERED: chlordiazePOXIDE HCL 25 MG CAPSULE PO ONE (19:03)
[2021-09-04] MEDS ORDERED: propRANOLol HCL 10 MG TABLET PO ONE (19:04)
[2021-09-04] MEDS ORDERED: ALBUTEROL SO4 HFA INHALER IH PRN (19:04)
[2021-09-04 19:12] VITALS: BMI 36.8
[2021-09-04] MEDS: PANTOPRAZOLE 40 MG TABLET PO SCH (21:11)
[2021-09-04] MEDS: THIAMINE HCL 100 MG TABLET (FP) PO SCH (21:11)
[2021-09-04] MEDS: chlordiazePOXIDE HCL 25 MG CAPSULE PO SCH (23:58)
[2021-09-04] MEDS: MELATONIN 5 MG TABLETS PO SCH (23:58)
[2021-09-05] MEDS: chlordiazePOXIDE HCL 25 MG CAPSULE PO SCH ×4 (07:03→22:27)
[2021-09-05] MEDS: METHOCARBAMOL 500 MG TABLET PO PRN (10:38)
[2021-09-05] MEDS: PANTOPRAZOLE 40 MG TABLET PO SCH (10:38)
[2021-09-05] MEDS: PRENATAL VITAMINS W/ FOLIC ACID TABLET (FP) PO SCH (10:38)
[2021-09-05] MEDS: hydrOXYzine PAMOATE 25 MG CAPSULE (FP) PO PRN ×3 (10:38→22:23)
[2021-09-05] MEDS: THIAMINE HCL 100 MG TABLET (FP) PO SCH (22:22)
[2021-09-05] MEDS: MELATONIN 5 MG TABLETS PO SCH (22:22)
[2021-09-06] MEDS: hydrOXYzine PAMOATE 25 MG CAPSULE (FP) PO PRN ×5 (06:25→22:48)
[2021-09-06] MEDS: chlordiazePOXIDE HCL 25 MG CAPSULE PO SCH ×2 (06:25→10:35)
[2021-09-06] MEDS: METHOCARBAMOL 500 MG TABLET PO PRN ×2 (10:34→18:20)
[2021-09-06] MEDS: PRENATAL VITAMINS W/ FOLIC ACID TABLET (FP) PO SCH (10:34)
[2021-09-06] MEDS: PANTOPRAZOLE 40 MG TABLET PO SCH (10:34)
[2021-09-06 12:23] LABS: HEMATOCRIT 40.3 % (32.4-45.2); HEMOGLOBIN 13.7 GM/dL (10.7-15.3); MCH 30.5 pg (25.7-33.7); MCHC 34.1 g/dl (32.0-36.0); MEAN CELL VOLUME 89.4 fl (80-96); MEAN PLT VOLUME 7.9 fl (7.5-11.1); PLATELET COUNT 229 10^3/uL (134-434); RBC 4.51 M/mm3 (3.60-5.2); RDW 13.3 % (11.6-15.6); WHITE BLOOD COUNT 7.9 K/mm3 (4.0-10.0)
[2021-09-06 12:36] LABS: CALCIUM 9.3 mg/dL (8.5-10.1)
[2021-09-06 12:37] LABS: ALBUMIN 3.4 g/dl (3.4-5.0); BLOOD UREA NITROGEN 12.4 mg/dL (7-18)
[2021-09-06 12:40] LABS: CREATININE 0.5 mg/dL (0.55-1.3)
[2021-09-06 12:42] LABS: BILIRUBIN,TOTAL 0.3 mg/dL (0.2-1); TOT PROT 6.4 g/dl (6.4-8.2)
[2021-09-06] MEDS: chlordiazePOXIDE 5 MG CAPSULE PO SCH ×2 (18:19→22:48)
[2021-09-06] MEDS: MELATONIN 5 MG TABLETS PO SCH (22:48)
[2021-09-06] MEDS: THIAMINE HCL 100 MG TABLET (FP) PO SCH (22:48)
[2021-09-07] MEDS ORDERED: chlordiazePOXIDE HCL 10 MG CAPSULE PO PRN
[2021-09-07] MEDS: chlordiazePOXIDE HCL 10 MG CAPSULE PO SCH ×2 (06:39→10:08)
[2021-09-07] MEDS: hydrOXYzine PAMOATE 25 MG CAPSULE (FP) PO PRN (10:08)
[2021-09-07] MEDS: PANTOPRAZOLE 40 MG TABLET PO SCH (10:08)
[2021-09-07] MEDS: METHOCARBAMOL 500 MG TABLET PO PRN (10:08)
[2021-09-07] MEDS: PRENATAL VITAMINS W/ FOLIC ACID TABLET (FP) PO SCH (10:08)
[2021-09-07 12:45] VITALS: BP 150/94; PULSE 109; TEMP 98.4
[2021-09-08] MEDS ORDERED: chlordiazePOXIDE HCL 10 MG CAPSULE PO SCH (05:00)
[2021-09-09] MEDS ORDERED: chlordiazePOXIDE HCL 10 MG CAPSULE PO ONE (05:00)
== END 2021-09-07 14:20 | disposition left against medical advice (07) | DRG 894 ==
LOC: YASAS 16:48 → Y6N 19:52
PROVIDERS: ADMIT Allergy & Immunology; ATTEND Surgery
PROC: HZ2ZZZZ Detoxification Services for Substance Abuse Treatment (ICD-10-PCS; principal; 2021-09-04)
DX: F11.23 Opioid dependence with withdrawal (principal); F13.20 Sedative, hypnotic or anxiolytic dependence, uncomplicated; F33.9 Major depressive disorder, recurrent, unspecified; F19.280 Other psychoactive substance dependence with psychoactive substance-induced anxiety disorder; F10.230 Alcohol dependence with withdrawal, uncomplicated; F12.20 Cannabis dependence, uncomplicated; F17.210 Nicotine dependence, cigarettes, uncomplicated; F43.10 Post-traumatic stress disorder, unspecified; K21.9 Gastro-esophageal reflux disease without esophagitis; J45.20 Mild intermittent asthma, uncomplicated; J44.9 Chronic obstructive pulmonary disease, unspecified; M19.90 Unspecified osteoarthritis, unspecified site; M54.59 Other low back pain; G89.29 Other chronic pain; R00.0 Tachycardia, unspecified; E66.9 Obesity, unspecified; Z68.36 Body mass index [BMI] 36.0-36.9, adult; Z91.040 Latex allergy status; Z88.0 Allergy status to penicillin; Z62.810 Personal history of physical and sexual abuse in childhood; Z86.59 Personal history of other mental and behavioral disorders; Z86.69 Personal history of other diseases of the nervous system and sense organs; Z56.0 Unemployment, unspecified
CPT/HCPCS: 36415; 80053; 85027; 86780; C9803-CS; U0003; U0005